=== PATIENT | female | born 1955 | race Caucasian/White ===

== ENCOUNTER → 2016-10-20 | Outpatient (CLI) | payer MEDICARE, MEDICAID | LOC: RAD 07:54 | PROVIDERS: ATTEND Physician Assistant | DX: R94.5 Abnormal results of liver function studies (principal); K82.8 Other specified diseases of gallbladder | CPT/HCPCS: 76705 ==

== ENCOUNTER 2016-11-29 19:09 | Emergency (ER) | payer MEDICARE, MEDICAID ==
[2016-11-29] MEDS ORDERED: ONDANSETRON HCL INJ/PF 4 MG/2 ML SDV IV ONE (20:15)
[2016-11-29] MEDS ORDERED: FENTANYL CITRATE INJ/PF 100 MCG/2 ML AMPUL IV PRN (20:15)
[2016-11-29] MEDS ORDERED: NORMAL SALINE 1000 ML 1,000 ML IV ONE (20:16)
--- NOTE | 2016-11-29 20:17 | ER Document Report ---
ED Medical Screen (RME) - General Chief Complaint: Nausea/Vomiting/Diarrhea Stated Complaint: NAUSEA AND ABDOMINAL PAIN Notes: Patient is a 61-year-old female status post cholecystectomy 10 days ago at [facility] who presents with diffuse abdominal pain, fever up to 103.5F, persistent diarrhea, and worsening myalgias. She has not been able to follow-up in [place]. Nothing improves or worsens or symptoms. She notes that she has diffuse lower abdominal pain at this time. I have greeted and performed a rapid initial assessment of this patient. A comprehensive ED assessment and evaluation of the patient, analysis of test results and completion of medical decision making process will be conducted by an additional ED providers. TRAVEL OUTSIDE OF THE [place] IN LAST 30 DAYS: No - Related Data Allergies/Adverse Reactions: codeine [Codeine] Allergy (Mild, Verified 11/29/16 19:21) Vomiting hydrocodone [From [place]] Allergy (Mild, Verified 11/29/16 19:21) lithium [[place]] Allergy (Mild, Verified 11/29/16 19:21) Hives nifedipine [From Procardia] Allergy (Mild, Verified 11/29/16 19:21) Hives oxycodone [From Percocet] Allergy (Mild, Verified 11/29/16 19:21) paroxetine HCl [From Paxil] Allergy (Mild, Verified 11/29/16 19:21) Hives Penicillins Allergy (Mild, Verified 11/29/16 19:21) Hives Sulfa (Sulfonamide Antibiotics) Allergy (Mild, Verified 11/29/16 19:21) Hives acetaminophen [From Tylenol-Codeine #3] Adverse Reaction (Verified 11/29/16 19: 21) Nausea/Vomiting paroxetine [From Paxil] Adverse Reaction (Verified 11/29/16 19:21) Involuntary movement(arm), Confusion pentazocine [From [place]] Adverse Reaction (Verified 11/29/16 19:21) Nausea/Vomiting Past Medical History - Past Medical History Cardiac Medical History: Reports: Hx Atrial Fibrillation Denies: Hx Congestive Heart Failure, Hx Coronary Artery Disease, Hx Heart Attack, Hx Hypercholesterolemia, Hx Hypertension, Hx Peripheral Vascular Disease , Hx Pulmonary Embolism, Hx Heart Murmur Pulmonary Medical History: Reports: Hx Pneumonia Denies: Hx Asthma, Hx Bronchitis, Hx COPD, Hx Respiratory Failure, Hx Sleep Apnea, Hx Tuberculosis Neurological Medical History: Reports: Hx Migraine. Denies: Hx Cerebrovascular Accident, Hx Seizures Endocrine Medical History: Reports: Hx Hypothyroidism. Denies: Hx Graves' Disease, Hx Hyperthyroidism Renal/ Medical History: Reports: Hx Ovarian Cysts - often, break upon standing. Denies: Hx End Stage Renal Disease, Hx Kidney Stones, Hx Peritoneal Dialysis, Hx Pelvic Inflammatory Disease Malignancy Medical History: Denies: Hx Breast Cancer, Hx Cervical Cancer, Hx Leukemia, Hx Lung Cancer, Hx Ovarian Cancer GI Medical History: Reports: Hx Irritable Bowel. Denies: Hx Crohn's Disease, Hx Gastroesophageal Reflux Disease, Hx Hiatal Hernia, Hx Liver Failure, Hx Ulcer Musculoskeltal Medical History: Reports Hx Arthritis, Denies Hx Fibromyalgia, Denies Hx Multiple Sclerosis, Denies Hx Muscular Dystrophy Psychiatric Medical History: Reports: Hx Bipolar Disorder, Hx Depression, Hx Post Traumatic Stress Disorder - after loss of father 1992 Denies: Hx Dementia - problem with short term memory, Hx Schizophrenia Traumatic Medical History: Denies: Hx Fractures Infectious Medical History: Denies: Hx HIV Past Surgical History: Reports: Hx Abdominal Surgery, Hx Gastric Bypass Surgery - 2001, Hx Hysterectomy, Hx Orthopedic Surgery - right knee surgery, Hx Tonsillectomy, Hx Tubal Ligation. Denies: Hx Appendectomy, Hx Bowel Surgery, Hx Section, Hx Cholecystectomy, Hx Colostomy, Hx Coronary Artery Bypass Graft, Hx Herniorrhaphy, Hx Mastectomy, Hx Pacemaker - Immunizations Hx Diphtheria, Pertussis, Tetanus Vaccination: No Physical Exam - Vital signs Vitals: Temp Pulse Resp BP Pulse Ox 98.5 F 85 16 144/66 H 96 11/29/16 19:17 11/29/16 19:17 11/29/16 19:17 11/29/16 19:17 11/29/16 19:17 Notes: PHYSICAL EXAMINATION: GENERAL: Well-appearing, well-nourished and in no acute distress. HEAD: Atraumatic, normocephalic. EYES: sclera anicteric, conjunctiva are normal. ENT: Moist mucous membranes. NECK: Normal range of motion LUNGS: Normal work of breathing HEART: 2+ radial pulses bilaterally EXTREMITIES: no pitting or edema. No cyanosis. NEUROLOGICAL: No focal neurological deficits. Moves all extremities spontaneously and on command. PSYCH: Normal mood, normal affect. SKIN: Warm, Dry, normal turgor, no rashes or lesions noted. Course - Vital Signs Vital signs: Temp Pulse Resp BP Pulse Ox 98.5 F 85 16 144/66 H 96 11/29/16 19:17 11/29/16 19:17 11/29/16 19:17 11/29/16 19:17 11/29/16 19:17
[2016-11-29 22:11] LABS: ABSOLUTE BASOPHILS # (AUTO) 0.1 10^3/uL (0.0-0.2); ABSOLUTE EOSINOPHILS # (AUTO) 0.1 10^3/uL (0.0-0.6); ABSOLUTE LYMPHOCYTES (AUTO) 1.6 10^3/uL (0.5-4.7); ABSOLUTE MONOCYTES (AUTO) 0.8 10^3/uL (0.1-1.4); ABSOLUTE NEUT (AUTO) 6.7 10^3/uL (1.7-8.2); BASOPHILS % (AUTO) 1.2 % (0-2); EOSINOPHILS % (AUTO) 0.6 % (0-6); HEMATOCRIT 30.7 % (36.0-47.0); HEMOGLOBIN 10.5 g/dL (12.0-15.5); HGB HCT DIFFERENCE 0.8; MEAN CORPUSCULAR HEMOGLOBIN 32.1 pg (27.0-33.4); MEAN CORPUSCULAR HGB CONC 34.1 g/dL (32.0-36.0); MEAN CORPUSCULAR VOLUME 94 fl (80-97); MONOCYTES % (AUTO) 9.1 % (3-13); RED BLOOD COUNT 3.26 10^6/uL (3.72-5.28); RED CELL DISTRIBUTION WIDTH 14.7 % (11.5-14.0); SEGMENTED NEUTROPHILS % (AUTO) 72.1 % (42-78); WHITE BLOOD COUNT 9.3 10^3/uL (4.0-10.5)
[2016-11-29 22:17] LABS: ALANINE AMINOTRANSFERASE 29 U/L (9-52); ALBUMIN 3.2 g/dL (3.5-5.0); ALKALINE PHOSPHATASE 141 U/L (38-126); ANION GAP 9 (5-19); ASPARTATE AMINO TRANSFERASE 26 U/L (14-36); BILIRUBIN,DIRECT 0.3 mg/dL (0.0-0.4); BILIRUBIN,TOTAL 0.4 mg/dL (0.2-1.3); BLOOD UREA NITROGEN 7 mg/dL (7-20); CALCIUM 8.5 mg/dL (8.4-10.2); CARBON DIOXIDE 28 mmol/L (22-30); CHLORIDE 112 mmol/L (98-107); CREATININE RESULT 1.22 mg/dL (0.52-1.25); GLUCOSE 91 mg/dL (75-110); POTASSIUM 3.1 mmol/L (3.6-5.0); SODIUM 149.4 mmol/L (137-145); TOTAL PROTEIN 6.8 g/dL (6.3-8.2)
--- NOTE | 2016-11-29 22:33 | ER Document Report ---
ED GI/ - General Chief Complaint: Nausea/Vomiting/Diarrhea Stated Complaint: NAUSEA AND ABDOMINAL PAIN Mode of Arrival: Ambulatory Information source: Patient Notes: This is a 61-year-old female who is postop day #9 status post laparoscopic cholecystectomy at [facility]. She states that she has been home from the hospital for one week, and for that week she has had daily and worsening diarrhea. She also reports abdominal discomfort which is worse in the right upper quadrant. She states that she has had difficulty following up with her surgeon at [facility] secondary to lack of transportation. She did follow up with her primary care physician Dr. Mcghee yesterday, and she was told to follow-up with her surgeon. She states that this morning at about 2 AM, she recorded a oral temperature at home of 103. She states that she has not taken any Tylenol or ibuprofen for fever has resolved spontaneously. Her last oral intake was one half of a hamburger melissa earlier today. She has had no vomiting. She states she has had up to 7 episodes of diarrhea today. TRAVEL OUTSIDE OF THE [place] IN LAST 30 DAYS: No - Related Data Allergies/Adverse Reactions: codeine [Codeine] Allergy (Mild, Verified 11/29/16 19:21) Vomiting hydrocodone [From [place]] Allergy (Mild, Verified 11/29/16 19:21) lithium [[place]] Allergy (Mild, Verified 11/29/16 19:21) Hives nifedipine [From Procardia] Allergy (Mild, Verified 11/29/16 19:21) Hives oxycodone [From Percocet] Allergy (Mild, Verified 11/29/16 19:21) paroxetine HCl [From Paxil] Allergy (Mild, Verified 11/29/16 19:21) Hives Penicillins Allergy (Mild, Verified 11/29/16 19:21) Hives Sulfa (Sulfonamide Antibiotics) Allergy (Mild, Verified 11/29/16 19:21) Hives acetaminophen [From Tylenol-Codeine #3] Adverse Reaction (Verified 11/29/16 19: 21) Nausea/Vomiting paroxetine [From Paxil] Adverse Reaction (Verified 11/29/16 19:21) Involuntary movement(arm), Confusion pentazocine [From [place]] Adverse Reaction (Verified 11/29/16 19:21) Nausea/Vomiting paper tape Allergy (Uncoded 11/29/16 21:00) Past Medical History - General Information source: Patient - Social History Smoking Status: Current Every Day Smoker Chew tobacco use (# tins/day): No Frequency of alcohol use: None Drug Abuse: None Family History: None - Past Medical History Cardiac Medical History: Reports: Hx Atrial Fibrillation Denies: Hx Congestive Heart Failure, Hx Coronary Artery Disease, Hx Heart Attack, Hx Hypercholesterolemia, Hx Hypertension, Hx Peripheral Vascular Disease , Hx Pulmonary Embolism, Hx Heart Murmur Pulmonary Medical History: Reports: Hx Pneumonia Denies: Hx Asthma, Hx Bronchitis, Hx COPD, Hx Respiratory Failure, Hx Sleep Apnea, Hx Tuberculosis Neurological Medical History: Reports: Hx Migraine. Denies: Hx Cerebrovascular Accident, Hx Seizures Endocrine Medical History: Reports: Hx Hypothyroidism. Denies: Hx Graves' Disease, Hx Hyperthyroidism Renal/ Medical History: Reports: Hx Ovarian Cysts - often, break upon standing. Denies: Hx End Stage Renal Disease, Hx Kidney Stones, Hx Peritoneal Dialysis, Hx Pelvic Inflammatory Disease Malignancy Medical History: Denies: Hx Breast Cancer, Hx Cervical Cancer, Hx Leukemia, Hx Lung Cancer, Hx Ovarian Cancer GI Medical History: Reports: Hx Irritable Bowel. Denies: Hx Crohn's Disease, Hx Gastroesophageal Reflux Disease, Hx Hiatal Hernia, Hx Liver Failure, Hx Ulcer Musculoskeltal Medical History: Reports Hx Arthritis, Denies Hx Fibromyalgia, Denies Hx Multiple Sclerosis, Denies Hx Muscular Dystrophy Psychiatric Medical History: Reports: Hx Bipolar Disorder, Hx Depression, Hx Post Traumatic Stress Disorder - after loss of father 1992 Denies: Hx Dementia - problem with short term memory, Hx Schizophrenia Traumatic Medical History: Denies: Hx Fractures Infectious Medical History: Denies: Hx HIV Past Surgical History: Reports: Hx Abdominal Surgery, Hx Cholecystectomy, Hx Gastric Bypass Surgery - 2001, Hx Hysterectomy, Hx Orthopedic Surgery - right knee surgery left knee right shoulder left shoulder right hip right, Hx Tonsillectomy - adenoids, Hx Tubal Ligation. Denies: Hx Appendectomy, Hx Bowel Surgery, Hx Section, Hx Colostomy, Hx Coronary Artery Bypass Graft, Hx Herniorrhaphy, Hx Mastectomy, Hx Pacemaker - Immunizations Hx Diphtheria, Pertussis, Tetanus Vaccination: No Review of Systems - Review of Systems Constitutional: Fever. denies: Chills EENT: No symptoms reported Cardiovascular: No symptoms reported. denies: Chest pain, Dizziness Respiratory: No symptoms reported. denies: Cough, Hurts to breathe, Short of breath Gastrointestinal: See HPI Genitourinary: No symptoms reported. denies: Burning, Dysuria Musculoskeletal: No symptoms reported Skin: No symptoms reported Neurological/Psychological: No symptoms reported Physical Exam - Vital signs Vitals: Temp Pulse Resp BP Pulse Ox 98.5 F 85 16 144/66 H 96 11/29/16 19:17 11/29/16 19:17 11/29/16 19:17 11/29/16 19:17 11/29/16 19:17 - Notes Notes: PHYSICAL EXAMINATION: GENERAL: Well-appearing, well-nourished and in no acute distress although anxious affect HEAD: Atraumatic, normocephalic. EYES: Pupils equal round and reactive to light, extraocular movements intact, sclera anicteric, conjunctiva are normal. ENT: nares patent, oropharynx clear without exudates. Moist mucous membranes. NECK: Normal range of motion, supple without lymphadenopathy LUNGS: Breath sounds clear to auscultation bilaterally and equal. No wheezes rales or rhonchi. HEART: Regular rate and rhythm without murmurs ABDOMEN: Soft, nondistended, laparascopic incisions healing well, normoactive bowel sounds. Mild TTP RUQ and suprapubic, no guarding/rebound/rigidity EXTREMITIES: Normal range of motion, no pitting or edema. NEUROLOGICAL: Cranial nerves grossly intact. Motor strength +5/5 bilateral upper and lower extremities PSYCH: Normal mood, anxious and worried affect SKIN: Warm, Dry, normal turgor, no rashes or lesions noted. Course - Re-evaluation Re-evalutation: 11/29/16 22:38 Records from [facility] have been requested. 11/30/16 00:02 Records from [facility] have been reviewed. The patient has remained hemodynamically stable and comfortable here in the emergency Department with no episodes of diarrhea. Her CT of her abdomen and pelvis demonstrated no acute process and no evidence of postsurgical infection or abscess. Her laboratory evaluation was significant for mild hypokalemia was otherwise reassuring. She does appear to have a urinary tract infection. She will receive one dose of IV antibiotics here in the emergency department and be discharged with outpatient antibiotics. She is instructed to call her surgeon and [facility] on Thursday to schedule her postop follow-up appointment. Strict return precautions were discussed. She is very happy and comfortable with this plan. She does ask for a prescription for pain medication for chronic migraines and back pain before she leaves and I did explain policy on not treating chronic pain in the emergency department. She voices understanding of this. - Vital Signs Vital signs: Temp Pulse Resp BP Pulse Ox 98.5 F 84 20 142/67 H 100 11/29/16 19:17 11/29/16 23:00 11/29/16 23:00 11/29/16 23:00 11/29/16 23:00 - Laboratory Result Diagrams: 11/29/16 21:45 11/29/16 21:45 Laboratory results interpreted by me: 11/29/16 11/29/16 11/29/16 21:45 21:45 22:53 RBC 3.26 L Hgb 10.5 L Hct 30.7 L RDW 14.7 H Sodium 149.4 H Potassium 3.1 L Chloride 112 H Est GFR ( Amer) 54 L Est GFR (Non-Af Amer) 45 L Alkaline Phosphatase 141 H Albumin 3.2 L Urine Blood SMALL H Ur Leukocyte Esterase MODERATE H - Diagnostic Test Radiology reviewed: Reports reviewed - CT abd/pelvis: no acute abnormality Discharge - Discharge Clinical Impression: Post-op pain, Hypokalemia UTI (urinary tract infection) Qualifiers: Urinary tract infection type: site unspecified Hematuria presence: without hematuria Qualified Code(s): N39.0 - Urinary tract infection, site not specified Condition: Stable Disposition: HOME, SELF-CARE Additional Instructions: URINARY TRACT INFECTION: Your evaluation indicates that you have a urinary tract infection. This is due to germs growing in the bladder. This is a common problem. This infection usually responds quickly to antibiotics. Your antibiotic should be taken exactly as prescribed. Drink plenty of fluids -- three to four quarts a day. Occasionally, a bladder anesthetic will be prescribed to help stop the feeling of urgency until the antibiotic has a chance to clear the infection. This may cause your urine to be dark orange. Certain urine infections require a culture. If the doctor obtained a culture, the results will be back in two days. You should call to see if a change in treatment is needed. A repeat urinalysis after you finish treatment is often recommended. The physician will let you know if further testing is required. Call the doctor if you develop fever, chills, flank pain, inability to urinate, or blood in the urine. ANTIBIOTIC THERAPY: You have been given an antibiotic prescription. It's important that you take all the medication, unless instructed otherwise by your physician. Failure to complete the entire course can result in relapse of your condition. Common side effects of antibiotics include nausea, intestinal cramping, or diarrhea. Women may develop vaginal yeast infections, and babies can get yeast (thrush) in the mouth following the use of antibiotics. Contact your physician if you develop significant side effects from this medication. Allergy to this antibiotic can result in hives, wheezing, faintness, or itching. If symptoms of allergy occur, stop the medication and call the doctor. NITROFURANTOIN (MACRODANTIN, MACROBID): You have received a prescription for nitrofurantoin (Macrodantin). This antibiotic is used for urinary tract infections. Women who are or nursing should notify the physician before taking this medicine. If you have ever had a problem caused by this medication in the past, be sure the physician is aware of it. Common side effects of this medicine include nausea, vomiting, or decreased appetite. Notify your physician if these side effects become severe. Immediately stop this medicine and call the physician if you develop cough , shortness of breath, chest pain, weakness, jaundice (yellow color of the skin and whites of the eyes), or a skin rash. HYPOKALEMIA: You have an abnormally decreased level of serum potassium. Hypokalemia may cause weakness, fatigue, or heart rhythm abnormalities. Sometimes there are no symptoms at all. Usually, low serum potassium is due to taking diuretics ( water pills). It can also be due to excessive vomiting or diarrhea. If no obvious cause is evident, further evaluation will be necessary. Treatment is usually oral potassium supplements. Take these exactly as prescribed. You may also want to select foods which are naturally high in potassium -- fruits (such as bananas, cantaloupe, grapes, oranges, prunes, tomatoes), fresh vegetables (potatoes, spinach, beans, peas), orange or tomato juice, tomato pasta sauce, milk, fish (halibut, tuna, salmon, flaco) A follow-up blood test is usually performed to assure that the potassium is returning to normal. Call the physician if you suffer severe weakness, muscle twitching or cramping, palpitations (pounding or irregular heartbeat), or any other new or alarming symptoms. POTASSIUM: A potassium-containing medication has been prescribed. This is usually used to treat potassium depletion caused by diuretics or by vomiting and diarrhea. This type of medicine is available in many forms, including elixirs, powders, fruity drinks, and pills. If one type is not working out for you, another can be substituted. Potassium can cause stomach upset. This can be prevented by taking it with meals. Do not take more than your doctor recommends. Notify your doctor if you develop repeated vomiting, black or bloody stool , severe weakness or numbness. FOODS HIGH IN POTASSIUM: baked potato with skin 1080 mg tomato pasta sauce, 1 cup 940 sweet potato with skin 690 orange juice, 1 cup 480 sammarinese chard 480 tuna, 3 oz 480 cantaloupe, 1 cup 430 banana 420 spinach 420 yogurt, plain, nofat, 6 oz 400 milk, 1 cup 370 watermelon, 2 cups 340 tomato, 1/2 cup 210 Other foods high in potassium are most other fruits and vegetables and fish. FOLLOW-UP CARE: If you have been referred to a physician for follow-up care, call the physician s office for an appointment as you were instructed or within the next two days. If you experience worsening or a significant change in your symptoms, notify the physician immediately or return to the Emergency Department at any time for re-evaluation. As discussed, call your surgeon in [place] on Thursday to schedule post op follow up appointment. Rest, drink plenty of fluids. Return to the ER for fever >101 or any worsening symptoms or concerns. Prescriptions: Nitrofurantoin/Nitrofuran Mac [Macrobid 100 mg Capsule] 1 tab PO BID #20 capsule Potassium Chloride 20 meq PO DAILY #3 tablet.er
[2016-11-29] MEDS ORDERED: POTASSI CL 20 MEQ/50 ML RIDER 50 ML IV ONE (22:40)
[2016-11-29] MEDS ORDERED: POTASSIUM CHLORIDE 20 MEQ/15 ML UDCUP PO ONE (22:40)
[2016-11-29 23:15] LABS: APPEARANCE,URINE CLEAR; BILIRUBIN,URINE NEGATIVE (NEGATIVE); GLUCOSE, URINE NEGATIVE (NEGATIVE); KETONES,URINE NEGATIVE (NEGATIVE); LEUKOCYTE ESTERASE,URINE MODERATE (NEGATIVE); NITRITE,URINE NEGATIVE (NEGATIVE); PROTEIN,URINE NEGATIVE (NEGATIVE); URINE SPECIFIC GRAVITY 1.002; UROBILINOGEN,URINE NEGATIVE mg/dL (<2.0)
[2016-11-29] MEDS ORDERED: CEFTRIAXONE 1 GM/D5W RTU 50 ML IV ONE (23:28)
[2016-11-30 00:58] VITALS: BP 131/65
== END 2016-11-30 00:58 | disposition home or self-care (01) ==
LOC: ER 19:09
DX: G89.18 Other acute postprocedural pain (principal); R10.11 Right upper quadrant pain; N39.0 Urinary tract infection, site not specified; R19.7 Diarrhea, unspecified; E87.6 Hypokalemia; F17.200 Nicotine dependence, unspecified, uncomplicated; F41.9 Anxiety disorder, unspecified; Z90.49 Acquired absence of other specified parts of digestive tract; Z88.5 Allergy status to narcotic agent; Z88.8 Allergy status to other drugs, medicaments and biological substances; Z88.0 Allergy status to penicillin; Z88.2 Allergy status to sulfonamides; Z91.048 Other nonmedicinal substance allergy status; Z87.19 Personal history of other diseases of the digestive system; Z98.84 Bariatric surgery status; Z90.710 Acquired absence of both cervix and uterus
CPT/HCPCS: 99284; 96361; 96375; 96365; 36415; 87040; 89055; 85025; 82272; 80053; 81001; 87493 ×2; 74177; J3010; A9270; J2405; J7030; J0696

== ENCOUNTER → 2017-07-21 | Outpatient (CLI) | payer MEDICARE, MEDICAID ==
--- NOTE | 2017-07-21 15:56 | RADIOLOGY REPORT (SQ) ---
EXAM DESCRIPTION: CT HEAD WITHOUT COMPLETED DATE/TIME: 07/21/2017 3:46 pm REASON FOR STUDY: UNSPECIFIED COMA,FALL R40.20 UNSPECIFIED COMA W19.XXXA UNSPECIFIED FALL, INITIAL ENCOUNTER COMPARISON: 01/01/2016 TECHNIQUE: Axial images acquired through the brain without intravenous contrast. Images reviewed wi th bone, brain and subdural windows. Images stored on PACS. All CT scanners at this facility use dose modulation, iterative reconstruction, and/or weight based d osing when appropriate to reduce radiation dose to as low as reasonably achievable (ALARA). [facility]: Dose Right [facility]: CareDose [facility]: Dose Right [facility]: Teradose 4D [facility]: Novogen RADIATION DOSE: CT Rad equipment meets quality standard of care and radiation dose reduction techniq ues were employed. CTDIvol: 49.0 mGy. DLP: 783 mGy-cm. mGy. LIMITATIONS: None. FINDINGS: VENTRICLES: Normal size and contour. CEREBRUM: No masses. No hemorrhage. No midline shift. No evidence for acute infarction. Normal gra y/white matter differentiation. No areas of low density in the white matter. CEREBELLUM: No masses. No hemorrhage. No alteration of density. No evidence for acute infarction. EXTRAAXIAL SPACES: No fluid collections. No masses. ORBITS AND GLOBE: No intra- or extraconal masses. Normal contour of globe without masses. CALVARIUM: No fracture. PARANASAL SINUSES: No fluid or mucosal thickening. SOFT TISSUES: No mass or hematoma. OTHER: No other significant finding. IMPRESSION: NO ACUTE INTRACRANIAL IMAGING FINDINGS. NO SIGNIFICANT CHANGE FROM PRIOR STUDY. EVIDENCE OF ACUTE STROKE: NO. COMMENT: Quality ID # 436: Final reports with documentation of one or more dose reduction techniques (e.g., Automated exposure control, adjustment of the mA and/or kV according to patient size, use of iterative reconstruction technique) TECHNICAL DOCUMENTATION: JOB ID: [id number] [employer]- All Rights Reserved
== END ==
LOC: RAD 15:32
PROVIDERS: ATTEND Family Medicine
DX: R40.20 Unspecified coma (principal); W19.XXXA Unspecified fall, initial encounter
CPT/HCPCS: 70450

== ENCOUNTER → 2017-12-01 | Day surgery (SDC) | payer MEDICARE, MEDICAID ==
[~2017-12-01] MED LIST: LIDOCAINE 1% INJ-PF (10 MG/ML) 30 ML SDV ONE
--- NOTE | 2017-12-01 14:10 | RADIOLOGY REPORT (SQ) ---
EXAM DESCRIPTION: ARTHRO SHOULDER INJECTION; FLUORO/NEEDLE PLACEMENT COMPLETED DATE/TIME: 12/01/2017 1:24 pm REASON FOR STUDY: M25.511 PAIN IN RIGHT SHOULDER M25.511 PAIN IN RIGHT SHOULDER COMPARISON: None. FLUOROSCOPY TIME: 3 seconds 2 images saved to PACS. LIMITATIONS: None. PROCEDURE: Procedure, risks, benefits and alternatives explained to patient who then gave written co nsent. The right shoulder was marked and a time out was called for correct procedure verification. P osterior entry site marked using fluoroscopic guidance. Shoulder prepped and draped using sterile te chnique. Local anesthesia achieved using 1% lidocaine injection. Hypodermic needle introduced into the joint space under direct fluoroscopic visualization. Non-ionic contrast instilled to confirm intr a-articular position. Dilute gadolinium solution then injected. Needle removed and entry site covere d with sterile bandage. No immediate complications noted. TECHNIQUE: Digital images acquired during fluoroscopy and stored on PACS. Patient immediately take n to the MR suite for additional imaging. INJECTION LOCATION: Posterior right shoulder. CONTRAST TYPE AND AMOUNT: 1 cc Isovue 10 cc Prohance/Saline mixture. IMPRESSION: SUCCESSFUL NEEDLE PLACEMENT AND INJECTION FOR RIGHT SHOULDER MR ARTHROGRAM USING POSTERI OR APPROACH. COMMENT: Quality ID 145: Final reports for procedures using fluoroscopy that document radiation exp osure indices, or exposure time and number of fluorographic images (if radiation exposure indices are not available) TECHNICAL DOCUMENTATION: JOB ID: [id number] [employer]- All Rights Reserved Reading location - IP/workstation name: [email or web address]
--- NOTE | 2017-12-01 14:10 | RADIOLOGY REPORT (SQ) ---
EXAM DESCRIPTION: ARTHRO SHOULDER INJECTION; FLUORO/NEEDLE PLACEMENT COMPLETED DATE/TIME: 12/01/2017 1:24 pm REASON FOR STUDY: M25.511 PAIN IN RIGHT SHOULDER M25.511 PAIN IN RIGHT SHOULDER COMPARISON: None. FLUOROSCOPY TIME: 3 seconds 2 images saved to PACS. LIMITATIONS: None. PROCEDURE: Procedure, risks, benefits and alternatives explained to patient who then gave written co nsent. The right shoulder was marked and a time out was called for correct procedure verification. P osterior entry site marked using fluoroscopic guidance. Shoulder prepped and draped using sterile te chnique. Local anesthesia achieved using 1% lidocaine injection. Hypodermic needle introduced into the joint space under direct fluoroscopic visualization. Non-ionic contrast instilled to confirm intr a-articular position. Dilute gadolinium solution then injected. Needle removed and entry site covere d with sterile bandage. No immediate complications noted. TECHNIQUE: Digital images acquired during fluoroscopy and stored on PACS. Patient immediately take n to the MR suite for additional imaging. INJECTION LOCATION: Posterior right shoulder. CONTRAST TYPE AND AMOUNT: 1 cc Isovue 10 cc Prohance/Saline mixture. IMPRESSION: SUCCESSFUL NEEDLE PLACEMENT AND INJECTION FOR RIGHT SHOULDER MR ARTHROGRAM USING POSTERI OR APPROACH. COMMENT: Quality ID 145: Final reports for procedures using fluoroscopy that document radiation exp osure indices, or exposure time and number of fluorographic images (if radiation exposure indices are not available) TECHNICAL DOCUMENTATION: JOB ID: [id number] [employer]- All Rights Reserved Reading location - IP/workstation name: [facility]
--- NOTE | 2017-12-01 14:57 | RADIOLOGY REPORT (SQ) ---
EXAM DESCRIPTION: MRI RT UPPER JOINT WITH COMPLETED DATE/TIME: 12/01/2017 2:06 pm REASON FOR STUDY: M25.511 PAIN IN RIGHT SHOULDER M25.511 PAIN IN RIGHT SHOULDER COMPARISON: 06/04/2016 TECHNIQUE: Right shoulder images acquired and stored on PACS. Oblique coronal, oblique sagittal, and axial imaging to include fat sensitive sequences as T1, water sensitive sequences as FST2/STIR, and contrast sensitive sequences as FST1. LIMITATIONS: Susceptibility artifact. FINDINGS: JOINT DISTENTION: Adequate distention for interpretation. Contrast in the subacromial bur sa. BONE MARROW AND CORTEX: Suture anchors in the humeral head. AC JOINT: Widening of the joint space which is unchanged. GLENOHUMERAL JOINT: Intact. ROTATOR CUFF: Atrophy of the supraspinatus and infraspinatus. Full-thickness tears with retraction. subscapularis and teres minor intact. LABRUM AND BICEPS LABRAL COMPLEX: Biceps anchor is attenuated but intact. The distal biceps is absen t from the bicipital groove. INFERIOR LABRAL COMPLEX: Intact. ADJACENT SOFT TISSUES: No masses or nodes. OTHER: No other significant finding. IMPRESSION: 1. Full-thickness tears of the supraspinatus and infraspinatus with retraction and muscle atrophy. 2. Attenuated biceps anchor with absent distal biceps, either torn or status post tenodesis. TECHNICAL DOCUMENTATION: JOB ID: [id number] [employer]- All Rights Reserved Reading location - IP/workstation name: [email or web address]
== END ==
LOC: EDBD → RAD 12:08 → EDSTATUS 13:00 → MERGE 13:00
PROVIDERS: ATTEND Orthopaedic Surgery
DX: M25.511 Pain in right shoulder (principal)
CPT/HCPCS: 73222; 77002; 23350; A9576; J3490

== ENCOUNTER → 2018-03-12 | Outpatient (CLI) | payer MEDICARE, MEDICAID ==
--- NOTE | 2018-03-12 14:21 | RADIOLOGY REPORT (SQ) ---
EXAM DESCRIPTION: KUB COMPLETED DATE/TIME: 03/12/2018 1:14 pm REASON FOR STUDY: CONSTIPATION, UNSPECIFIED K59.00 CONSTIPATION, UNSPECIFIED COMPARISON: CT abdomen pelvis 11/29/2016 Right upper quadrant ultrasound 10/20/2016 NUMBER OF VIEWS: One view. TECHNIQUE: Supine radiographic image of the abdomen acquired. LIMITATIONS: None. FINDINGS: BOWEL GAS PATTERN: Normal bowel gas pattern. No dilated loops. Moderate stool in the sple juliet flexure of colon and transverse colon CALCIFICATIONS: No suspicious calcifications. SOFT TISSUES: No gross mass or suggestion of organomegaly. HARDWARE: Clips left upper quadrant post gastric bypass. Right upper quadrant clips post cholecystec fan. Lower lumbar spine fusion hardware. Right hip replacement. Bladder tacks are present over th e symphysis pubis BONES: No acute fracture. No worrisome bone lesions. OTHER: No other significant finding. IMPRESSION: Moderate stool in the splenic flexure and transverse colon TECHNICAL DOCUMENTATION: JOB ID: [id number] [employer]- All Rights Reserved Reading location - IP/workstation name: [facility]
== END ==
LOC: OD 12:37
PROVIDERS: ATTEND Physician Assistant
DX: K59.00 Constipation, unspecified (principal)
CPT/HCPCS: 74018

== ENCOUNTER → 2018-04-19 | Outpatient (CLI) | payer MEDICARE, MEDICAID ==
[2018-04-19 14:29] LABS: ABSOLUTE BASOPHILS # (AUTO) 0.1 10^3/uL (0.0-0.2); ABSOLUTE EOSINOPHILS # (AUTO) 0.2 10^3/uL (0.0-0.6); ABSOLUTE MONOCYTES (AUTO) 0.5 10^3/uL (0.1-1.4); ABSOLUTE NEUT (AUTO) 4.5 10^3/uL (1.7-8.2); BASOPHILS % (AUTO) 0.8 % (0-2); EOSINOPHILS % (AUTO) 3.1 % (0-6); HEMATOCRIT 40.5 % (36.0-47.0); HEMOGLOBIN 13.8 g/dL (12.0-15.5); LYMPHOCYTES % (AUTO) 26.8 % (13-45); MEAN CORPUSCULAR HEMOGLOBIN 31.8 pg (27.0-33.4); MEAN CORPUSCULAR VOLUME 93 fl (80-97); MONOCYTES % (AUTO) 7.3 % (3-13); PLATELET COUNT 216 10^3/uL (150-450); RED BLOOD COUNT 4.34 10^6/uL (3.72-5.28); RED CELL DISTRIBUTION WIDTH 13.5 % (11.5-14.0); TOTAL CELLS COUNTED % (AUTO) 100 %; WHITE BLOOD COUNT 7.3 10^3/uL (4.0-10.5)
--- NOTE | 2018-04-19 14:38 | RADIOLOGY REPORT (SQ) ---
EXAM DESCRIPTION: CHEST PA/LATERAL COMPLETED DATE/TIME: 04/19/2018 1:41 pm REASON FOR STUDY: PRE-OP COMPARISON: Chest film 06/23/2016 EXAM PARAMETERS: NUMBER OF VIEWS: two views TECHNIQUE: Digital Frontal and Lateral radiographic views of the chest acquired. RADIATION DOSE: NA LIMITATIONS: none FINDINGS: LUNGS AND PLEURA: Stable bandlike scarring or atelectasis left lung base as compared to 20 16. No acute infiltrates. No pleural effusion or pneumothorax. MEDIASTINUM AND HILAR STRUCTURES: No masses or contour abnormalities. HEART AND VASCULAR STRUCTURES: Heart normal size. No evidence for failure. BONES: Osteopenic. Postsurgical changes right proximal humerus HARDWARE: None in the chest. OTHER: No other significant finding. IMPRESSION: Stable atelectasis or scarring left lung base. No acute infiltrates. TECHNICAL DOCUMENTATION: JOB ID: [id number] [employer]- All Rights Reserved Reading location - IP/workstation name: [email or web address]
[2018-04-19 14:50] LABS: APPEARANCE,URINE CLOUDY; BILIRUBIN,URINE NEGATIVE (NEGATIVE); COLOR,URINE YELLOW; GLUCOSE, URINE NEGATIVE (NEGATIVE); KETONES,URINE NEGATIVE (NEGATIVE); LEUKOCYTE ESTERASE,URINE SMALL (NEGATIVE); NITRITE,URINE NEGATIVE (NEGATIVE); PROTEIN,URINE NEGATIVE (NEGATIVE); URINE SPECIFIC GRAVITY 1.017
[2018-04-19 14:50] LABS: ANION GAP 7 (5-19); BLOOD UREA NITROGEN 18 mg/dL (7-20); CALCIUM 9.2 mg/dL (8.4-10.2); CARBON DIOXIDE 26 mmol/L (22-30); CHLORIDE 105 mmol/L (98-107); GLUCOSE 89 mg/dL (75-110); POTASSIUM 4.9 mmol/L (3.6-5.0); SODIUM 138.3 mmol/L (137-145)
--- NOTE | 2018-04-19 21:57 | EKG REPORT ---
SEVERITY:- OTHERWISE NORMAL ECG - SINUS RHYTHM BORDERLINE LEFT AXIS DEVIATION : Confirmed by: Essence Cancino MD 19-Apr-2018 21:56:39
== END ==
LOC: OD 13:07
PROVIDERS: ATTEND Family Medicine
DX: Z01.810 Encounter for preprocedural cardiovascular examination (principal); Z01.811 Encounter for preprocedural respiratory examination; Z01.812 Encounter for preprocedural laboratory examination; J98.11 Atelectasis
CPT/HCPCS: 36415; 71046; 80048; 81001; 85025; 93005; 93010

== ENCOUNTER 2018-04-22 08:28 | Day surgery (SDC) | payer MEDICARE, MEDICAID ==
[~2018-04-22 08:28] MED LIST changes: +CLINDAMYCIN 600 MG/D5W RTU 600 MG/50 ML RTUPB IV ONE; +CLINDAMYCIN 600 MG/D5W RTU 600 MG/50 ML RTUPB IV PRN; -LIDOCAINE 1% INJ-PF (10 MG/ML) 30 ML SDV ONE
--- NOTE | 2018-04-22 09:03 | RADIOLOGY REPORT (SQ) ---
EXAM DESCRIPTION: CHEST SINGLE VIEW COMPLETED DATE/TIME: 04/22/2018 8:52 am REASON FOR STUDY: PREOP COMPARISON: 04/19/2018 EXAM PARAMETERS: NUMBER OF VIEWS: One view. TECHNIQUE: Single frontal radiographic view of the chest acquired. RADIATION DOSE: NA LIMITATIONS: None. FINDINGS: LUNGS AND PLEURA: No opacities, masses or pneumothorax. No pleural effusion. Linear densi ty is again identified at the left lung base which could represent linear atelectasis or scarring. MEDIASTINUM AND HILAR STRUCTURES: No masses. Contour normal. HEART AND VASCULAR STRUCTURES: Heart normal in size. Normal vasculature. BONES: No acute findings. HARDWARE: None in the chest. OTHER: No other significant finding. IMPRESSION: Linear atelectasis or scarring in the left lung base. Remaining lung chappell are clear. Other findings as noted above TECHNICAL DOCUMENTATION: JOB ID: [id number] [employer]- All Rights Reserved Reading location - IP/workstation name: [email or web address]
[2018-04-22] MEDS ORDERED: BUPIVACAINE HCL 0.5 % INJ/PF 30 ML SDV ONE (09:40)
[2018-04-22] MEDS ORDERED: SUCCINYLCHOLINE CHLORIDE INJ 200 MG/10 ML VIAL ONE (09:40)
[2018-04-22] MEDS ORDERED: KETOROLAC TROMETHAMINE 60 MG/2 ML SDV ONE (09:40)
[2018-04-22] MEDS ORDERED: DEXAMETHASONE SOD PHOSPHATE INJ 4 MG/1 ML VIAL ONE (09:40)
[2018-04-22] MEDS ORDERED: PHENYLEPHRINE HCL INJ/PF 10 MG/1 ML SDV ONE (09:40)
[2018-04-22] MEDS ORDERED: ONDANSETRON HCL INJ/PF 4 MG/2 ML SDV ONE (09:40)
[2018-04-22] MEDS ORDERED: EPINEPHRINE INJ/PF 1 MG/1 ML AMPULE ONE (09:41)
[2018-04-22] MEDS ORDERED: MIDAZOLAM 2 MG/2 ML INJ ONE (11:12)
[2018-04-22] MEDS ORDERED: HYDROMORPHONE HCL INJ/PF 2 MG/ML AMPULE ONE (11:13)
[2018-04-22] MEDS ORDERED: PROPOFOL INJ 200 MG/20 ML VIAL IV ONE (11:14)
[2018-04-22] MEDS ORDERED: PROMETHAZINE HCL INJ 25 MG/1 ML VIAL IV PRN ×2 (13:09)
[2018-04-22] MEDS ORDERED: FENTANYL CITRATE INJ/PF 100 MCG/2 ML AMPUL IV PRN ×3 (13:09)
[2018-04-22] MEDS ORDERED: DIPHENHYDRAMINE HCL 50 MG/ML VIAL IV PRN (13:09)
[2018-04-22] MEDS: FENTANYL CITRATE INJ/PF 100 MCG/2 ML AMPUL ONE ×2 (15:35→15:45)
--- NOTE | 2018-04-22 15:41 | Discharge Summary ---
Discharge Summary (SDC) - Discharge Final Diagnosis: Right shoulder arthroscopic superior capsular reconstruction Date of Surgery: 04/22/18 Discharge Date: 04/22/18 Condition: Good Treatment or Instructions: Patient is instructed to follow up in 10-14 days. Patient instructed to remove dressing in 4 days then can shower and apply Band- Aids as needed. Patient to wear sling for comfort but okay to remove for shower and pendulum exercises. Pendulum exercises are instructed to be done 3 times a day ideally with breakfast, lunch, dinners and showers. Patient instructed to call if there is any signs of redness or drainage fevers or chills. Prescriptions: Oxycodone HCl 5 - 10 mg PO Q4 PRN #40 tablet PRN Reason: For Pain Referrals: CHERELLE PATEL MD [Primary Care Provider] - Discharge Diet: As Tolerated Respiratory Treatments at Home: Deep Breathing/Coughing Discharge Activity: No Driving, No Lifting Over 10 Pounds, No Lifting/Push/ Pulling, Slowly Increase Activity Home Care Assistance: None Needed Report the Following to Your Physician Immediately: Shortness of Breath, Vomiting, Increase in Pain, Fever over 101 Degrees, Unusual Bleeding, Redness, Swelling, Warmth, Increased Soreness, Drainage-[place], Drainage-Green, Drainage- Foul Smelling
[2018-04-22] MEDS ORDERED: OXYCODONE HCL IR 5 MG TABLET PO PRN (15:57)
[2018-04-22] MEDS ORDERED: OXYCODONE HCL IR 5 MG TABLET ONE (16:21)
[2018-04-22 17:34] VITALS: BP 128/66
--- NOTE | 2018-04-22 18:18 | Operative Report ---
Operative Report DATE OF SURGERY: 04/22/18 PREOPERATIVE DIAGNOSIS: Rotator cuff deficient right shoulder. Mild osteoarthritis POSTOPERATIVE DIAGNOSIS: Same OPERATION: Right shoulder arthroscopic superior capsular reconstruction using dermal allograft SURGEON: ARMANDO BROWN ANESTHESIA: GA TISSUE REMOVED OR ALTERED: none COMPLICATIONS: None ESTIMATED BLOOD LOSS: Less than 20 mL INTRAOPERATIVE FINDINGS: As above PROCEDURE: Patient received preoperative antibiotics in the holding area. Patient then was brought to the operating room where the right shoulder was prepped and draped in a normal sterile surgical fashion. Timeout was done identifying the right shoulder as the correct site. 11 blade was used to establish the previous posterior portal and the trocar was introduced and glenohumeral joint was distended with sterile saline solution. Anterior portal was established 11 blade and the same was done to establish a lateral portal more adjacent to the previous incision. Through this portal was able to remove and resect the old sutures from the previous rotator cuff repair. As noted the patient had to be rupture of the rotator cuff with retraction of the supraspinatus and some fibers of this infraspinatus still attached. Once debridement of the greater tuberosity was done and resection of the previous sutures I then redirected the camera to the subacromial space. Here continued to debride and expose the rim of the glenoid posterior to the rim of labrum. Through 2 percutaneous incisions I was able then to place my drill holes for my push locks and placed the orange straw to caroline my drill holes for eventual placement of my push locks. I then used a another breathing sensation to place my 2 by composite swivel locks for fixation posteriorly on the lateral row and anteriorly in the lateral row for my graft. On the back table then I proceeded to prepare the graft. I used a measuring device to measure all 4 corners and then cut my graft to the measurements measured. The remaining excess graft was then placed separately and then punch was used to make holes in the lateral row. I then used the scorpion to pass my FiberWire for the medial row. I showed all these fiber wires through the percutaneous incisions pulling them allowing me then to bring the graft medially. Before placing the graft inside completely I passed my fiber tape strands through the punch holes in the lateral row. Now using proper suture technique and management I was able then to fold the graft and then pulled the graft medially and completely inside the shoulder. I secured my medial row anteriorly and laterally placing my push locks in the predrilled hole. The remaining excess strands were cut and after having secured the medial row I then was able to crisscrossed the fiber tape and status my lateral row. Pictures were taken showing fixation of my dermal graft and nicely secured. Took pictures of my screws that also showed to have good purchase. Fluid from the shoulder was removed and then all portal sites were closed using 3-0 nylon. Xeroform 4 x 4 dressing were applied after quarter percent Marcaine local anesthetic was injected. The drapes were then covered with ABD pads and secured with Medipore tape. All drapes were removed and then the patient was placed in a sling and then a placed in a supine position where she was extubated and sent to PACU in stable condition.
== END 2018-04-22 17:35 | disposition home or self-care (01) ==
LOC: OROUT 08:28
PROVIDERS: ATTEND Orthopaedic Surgery
DX: M75.121 Complete rotator cuff tear or rupture of right shoulder, not specified as traumatic (principal); M25.511 Pain in right shoulder; M19.011 Primary osteoarthritis, right shoulder; K21.9 Gastro-esophageal reflux disease without esophagitis; E03.9 Hypothyroidism, unspecified; G62.9 Polyneuropathy, unspecified; Z88.5 Allergy status to narcotic agent; Z88.0 Allergy status to penicillin; Z88.2 Allergy status to sulfonamides; Z79.899 Other long term (current) drug therapy; Z87.891 Personal history of nicotine dependence; Z86.73 Personal history of transient ischemic attack (TIA), and cerebral infarction without residual deficits; Z01.810 Encounter for preprocedural cardiovascular examination; Z01.811 Encounter for preprocedural respiratory examination; Z01.812 Encounter for preprocedural laboratory examination
CPT/HCPCS: 71045; 29999; C1713 ×2; Q4125; J2250; J3490; J1100; J0171; J1885; J3010; J1170; J2370; J0330; J2405; J2704; A9270; 1630

== ENCOUNTER → 2019-03-08 | Outpatient (CLI) | payer MEDICARE, MEDICAID ==
[2019-03-08 16:00] LABS: ABSOLUTE EOSINOPHILS # (AUTO) 0.2 10^3/uL (0.0-0.6); ABSOLUTE MONOCYTES (AUTO) 0.5 10^3/uL (0.1-1.4); ABSOLUTE NEUT (AUTO) 6.7 10^3/uL (1.7-8.2); BASOPHILS % (AUTO) 0.5 % (0-2); EOSINOPHILS % (AUTO) 2.4 % (0-6); HEMATOCRIT 39.3 % (36.0-47.0); HEMOGLOBIN 13.2 g/dL (12.0-15.5); LYMPHOCYTES % (AUTO) 20.7 % (13-45); MEAN CORPUSCULAR HEMOGLOBIN 31.7 pg (27.0-33.4); MEAN CORPUSCULAR HGB CONC 33.7 g/dL (32.0-36.0); MEAN CORPUSCULAR VOLUME 94 fl (80-97); MONOCYTES % (AUTO) 5.5 % (3-13); PLATELET COUNT 212 10^3/uL (150-450); RED BLOOD COUNT 4.18 10^6/uL (3.72-5.28); RED CELL DISTRIBUTION WIDTH 14.1 % (11.5-14.0); SEGMENTED NEUTROPHILS % (AUTO) 70.9 % (42-78); TOTAL CELLS COUNTED % (AUTO) 100 %; WHITE BLOOD COUNT 9.5 10^3/uL (4.0-10.5)
[2019-03-08 16:23] LABS: ALBUMIN 4.4 g/dL (3.5-5.0); ALKALINE PHOSPHATASE 136 U/L (38-126); ANION GAP 10 (5-19); ASPARTATE AMINO TRANSFERASE 35 U/L (14-36); BILIRUBIN,DIRECT 0.3 mg/dL (0.0-0.4); BILIRUBIN,TOTAL 0.3 mg/dL (0.2-1.3); BLOOD UREA NITROGEN 21 mg/dL (7-20); CALCIUM 9.2 mg/dL (8.4-10.2); CARBON DIOXIDE 23 mmol/L (22-30); CHLORIDE 106 mmol/L (98-107); GLUCOSE 88 mg/dL (75-110); POTASSIUM 5.2 mmol/L (3.6-5.0); TOTAL PROTEIN 7.2 g/dL (6.3-8.2)
[2019-03-08 17:26] LABS: FOLATE 7.69 ng/mL (>2.76)
== END ==
LOC: OD 13:20
PROVIDERS: ATTEND Surgery
DX: Z48.89 Encounter for other specified surgical aftercare (principal); Z98.84 Bariatric surgery status
CPT/HCPCS: 36415; 80053; 82306; 82746; 84252; 84425; 84590; 85025

== ENCOUNTER → 2019-06-16 | Day surgery (SDC) | payer MEDICARE, MEDICAID ==
[~2019-06-16] MED LIST changes: +BUPIVACAINE HCL 0.5 % INJ/PF 30 ML SDV ONE; -CLINDAMYCIN 600 MG/D5W RTU 600 MG/50 ML RTUPB IV ONE; -CLINDAMYCIN 600 MG/D5W RTU 600 MG/50 ML RTUPB IV PRN; +LIDOCAINE 1% INJ-PF (10 MG/ML) 30 ML SDV ONE
--- NOTE | 2019-06-16 12:04 | Operative Report ---
PREOPERATIVE DIAGNOSIS: Spondylolisis without myopathy or radiculopathy M47.818// Lumbar Sacral Spondylolisis without myopathy or radiculopathy M47.817 POSTOPERATIVE DIAGNOSIS:Spondylolisis without myopathy or radiculopathy M47.818// Lumbar Sacral Spondylolisis without myopathy or radiculopathy M47.817 PROCEDURE: 1. Radiofrequency Ablation of bilateral L5 dorsal Ramus 2. Sacroiliac Joint Ablation - Lateral Branches of bilateral S1, S2, S3 DATE OF PROCEDURE: June 16, 2019 ANESTHESIA: Local COMPLICATIONS: None CONSENT: A full description of the procedure was provided including benefits as well as possible complications. All questions were answered and informed consent was given and signed. ASA guidelines for fasting were verified prior to sedation. PROCEDURE IN DETAIL The patient was brought into the fluoroscopy suite and carefully assisted into the prone position on the fluoroscopy table and allowed to adjust to a position of comfort. A grounding pad was placed on the right thigh. The low back and buttocks were widely prepped with a chloraprep solution, allowed to air dry and draped in standard sterile surgical fashion. Local anesthesia was provided by 12 mL of 1 % lidocaine delivered with a 25 g needle. PROCEDURE #1: Radiofrequency Ablation of Dorsal Ramus of bilateral L5. A 17g 100mm radiofrequency introducer needle was placed to the planned anatomic target, guided with intermittent fluoroscopy with a perpendicular approach, to terminally place at the bilateral sacral ala. The stylets were removed and the radiofrequency probes with a 4mm active tip were then inserted. Needle tip position of the probes were verified in the AP, oblique, and lateral views. At each site, the medial branch nerve was stimulated at 2Hz to a maximum of 1- 2volts determined to finalize safe needle and electrode placement. The patient was awake and responsive during this portion of the procedure. Each target was anesthetized with 2mL of 2 % Sensorcaine anesthesia for lesioning and then each target was lesioned at 80 degrees Celsius for 2 minutes and 30 seconds. Tissue impedences were noted to be between 250 and 500 Ohms. PROCEDURE #2: Radiofrequency Ablation of bilateral S1, S2, S3 Lateral Branches Using the AP fluoroscopic view for visualization of the lateral PSFA as defined by the pre-placed 27-gauge Quincke needles, appropriate skin starting positions were defined. Using the PSFA as a "clock-face", the positions were: S1; bilateral = 1 and 5 oclock S2; bilateral = 1 and 5 oclock S3; bilateral = 3 oclock Using fluoroscopic guidance, a 17g introducer needle was inserted sequentially onto the target positions described above until the introducer tip touched the bony surface of the sacrum. The stylet was withdrawn from the introducer and the radiofrequency probe with a 4 mm active tip was fully inserted into the introducer. A lateral view was obtained for standard reference. At each of the targets, needle placement was verified with the use of multi-planar fluoroscopy. The needle tip position was approximately 7 - 10mm lateral to the PSFA as determined by using an Epsilon ruler. At each site, the lateral branch nerve was stimulated at 2 Hz to a maximum of 1- 2 volts determined to finalize safe needle and electrode placement. The patient was awake and responsive during this portion of the procedure. Each target was anesthetized with 2 mL of 2 % Sensorcaine anesthesia for lesioning and then each target was lesioned at 80 degrees Celsius for 2 minutes and 30 seconds. Tissue impedences were noted to be between 250- 500 Ohms. At the conclusion of the lesioning the needles were removed and bandages placed over the needle placement sites and the patient returned to the supine position on a stretcher and trans ported to the recovery room without hemodynamic, neurologic, or allergic reactions. Fluoroscopic images were printed for hard copy recording and digitally archived. FLUOROSCOPIC INTERPRETATION: Appropriate epidurogram obtained. Appropriate lesioning of the 10 targets noted. POST PROCEDURE EVALUATION: The patient was comfortable in the recovery room. The patient is aware that pain may worsen before remitting and 4 6 weeks may be required prior to the onset of pain relief. IMPRESSION: 1. Technically successful sacral lateral branch, lumbar dorsal ramus for denervation from L5-S3 on the bilateral without complication. 2. RTC in 2 weeks. 3. Estimated Blood Loss: None 4. Fluoroscopy time: 30 seconds
== END ==
LOC: RAD 11:14
PROVIDERS: ATTEND Family Medicine
DX: M47.817 Spondylosis without myelopathy or radiculopathy, lumbosacral region (principal)
CPT/HCPCS: 64635; 64640 ×3; J3490 ×2

== ENCOUNTER → 2020-04-24 | Outpatient (CLI) | payer MEDICARE, MEDICAID ==
--- NOTE | 2020-04-24 15:22 | RADIOLOGY REPORT (SQ) ---
EXAM DESCRIPTION: CHEST PA/LATERAL IMAGES COMPLETED DATE/TIME: 04/24/2020 3:06 pm REASON FOR STUDY: PRE-OP COMPARISON: 06/23/2016 EXAM PARAMETERS: NUMBER OF VIEWS: two views TECHNIQUE: Digital Frontal and Lateral radiographic views of the chest acquired. RADIATION DOSE: NA LIMITATIONS: none FINDINGS: LUNGS AND PLEURA: Linear left basilar opacities, likely platelike atelectasis. No other c onsolidation. No pleural effusion or pneumothorax. MEDIASTINUM AND HILAR STRUCTURES: No masses or contour abnormalities. HEART AND VASCULAR STRUCTURES: Heart normal size. No evidence for failure. BONES: No acute findings. HARDWARE: None in the chest. OTHER: No other significant finding. IMPRESSION: Left basilar platelike atelectasis. No other evidence of acute intrathoracic process. TECHNICAL DOCUMENTATION: JOB ID: [id number] [employer]- All Rights Reserved Reading location - IP/workstation name: [email or web address]
[2020-04-24 15:35] LABS: APPEARANCE,URINE SLIGHTLY-CLOUDY; BILIRUBIN,URINE NEGATIVE (NEGATIVE); COLOR,URINE YELLOW; GLUCOSE, URINE NEGATIVE (NEGATIVE); KETONES,URINE NEGATIVE (NEGATIVE); LEUKOCYTE ESTERASE,URINE NEGATIVE (NEGATIVE); NITRITE,URINE NEGATIVE (NEGATIVE); PROTEIN,URINE NEGATIVE (NEGATIVE); URINE SPECIFIC GRAVITY 1.016
[2020-04-24 15:47] LABS: ABSOLUTE EOSINOPHILS # (AUTO) 0.2 10^3/uL (0.0-0.6); ABSOLUTE MONOCYTES (AUTO) 0.7 10^3/uL (0.1-1.4); ABSOLUTE NEUT (AUTO) 5.5 10^3/uL (1.7-8.2); BASOPHILS % (AUTO) 0.5 % (0-2); EOSINOPHILS % (AUTO) 2.5 % (0-6); HEMATOCRIT 40.1 % (36.0-47.0); HEMOGLOBIN 13.6 g/dL (12.0-15.5); LYMPHOCYTES % (AUTO) 23.6 % (13-45); MEAN CORPUSCULAR HEMOGLOBIN 31.4 pg (27.0-33.4); MEAN CORPUSCULAR VOLUME 93 fl (80-97); MONOCYTES % (AUTO) 8.2 % (3-13); PLATELET COUNT 221 10^3/uL (150-450); RED BLOOD COUNT 4.33 10^6/uL (3.72-5.28); RED CELL DISTRIBUTION WIDTH 13.4 % (11.5-14.0); SEGMENTED NEUTROPHILS % (AUTO) 65.2 % (42-78); TOTAL CELLS COUNTED % (AUTO) 100 %; WHITE BLOOD COUNT 8.5 10^3/uL (4.0-10.5)
[2020-04-24 15:58] LABS: ALBUMIN 4.2 g/dL (3.5-5.0); ANION GAP 8 (5-19); BLOOD UREA NITROGEN 15 mg/dL (7-20); C-REACTIVE PROTEIN 10.7 mg/L (<10.0); CALCIUM 9.1 mg/dL (8.4-10.2); CARBON DIOXIDE 24 mmol/L (22-30); CHLORIDE 107 mmol/L (98-107); GLUCOSE 111 mg/dL (75-110); POTASSIUM 4.6 mmol/L (3.6-5.0)
[2020-04-24 16:30] LABS: ERYTHROCYTE SEDIMENTATION RATE 29 mm/hr (0-30)
--- NOTE | 2020-04-24 19:03 | EKG REPORT ---
SEVERITY:- ABNORMAL ECG - SINUS RHYTHM LEFT ATRIAL ABNORMALITY BORDERLINE LEFT AXIS DEVIATION : Confirmed by: Segundo Hussein MD 24-Apr-2020 19:02:22
== END ==
LOC: OD 14:28
PROVIDERS: ATTEND Orthopaedic Surgery
DX: Z01.810 Encounter for preprocedural cardiovascular examination (principal); Z01.811 Encounter for preprocedural respiratory examination; Z01.812 Encounter for preprocedural laboratory examination; E16.2 Hypoglycemia, unspecified
CPT/HCPCS: 36415; 71046; 80048; 81001; 82040; 82306; 83036; 85025; 85652; 86140; 93005; 93010

== ENCOUNTER 2020-05-14 05:23 | Observation (INO) | payer MEDICARE, MEDICAID ==
[~2020-05-14 05:23] MED LIST changes: +ACETAMINOPHEN 325 MG TABLET PO PRN; -BUPIVACAINE HCL 0.5 % INJ/PF 30 ML SDV ONE; +CEFAZOLIN 2 GM/D5W RTU 2 GM/50 ML RTUPB IV PRN; +CELECOXIB 200 MG CAPSULE PO PRN; +GABAPENTIN 100 MG CAPSULE PO PRN; +LACTATED RINGERS 1000 ML IV PRN; +LIDOCAINE 0.5% INJ-PF (5 MG/ML) 50 ML SDV SUBCUT PRN; -LIDOCAINE 1% INJ-PF (10 MG/ML) 30 ML SDV ONE; +ONDANSETRON HCL INJ/PF 4 MG/2 ML SDV IV PRN; +OXYCODONE HCL SR 10 MG TABLET PO PRN; +PANTOPRAZOLE SODIUM 20 MG TABLET.DR PO PRN; +SCOPOLAMINE HYDROBROMIDE 1.5 MG PATCH.TD72 TD PRN; +TRANEXAMIC ACID INJ/PF 1,000 MG/10 ML SDV IV PRN; +VANCOMYCIN HCL 1,000 MG in DEXTROSE 5%-WATER 250 ML IV PRN
[2020-05-14] MEDS ORDERED: BUPIVACAINE HCL 0.25 % INJ/PF (2.5 MG/1 ML) 30 ML VIAL ONE (05:44)
[2020-05-14] MEDS ORDERED: KETOROLAC TROMETHAMINE INJ/PF 30 MG/1 ML SDV ONE (05:45)
[2020-05-14] MEDS ORDERED: LIDOCAINE 1% INJ-PF (10 MG/ML) 30 ML SDV ONE (05:45)
[2020-05-14] MEDS ORDERED: VANCOMYCIN HCL INJ 1000 MG VIAL ONE (05:45)
[2020-05-14] MEDS ORDERED: OXYCODONE HCL SR 10 MG TABLET PO ONE (05:55)
[2020-05-14] MEDS ORDERED: CEFAZOLIN 2 GM/D5W RTU 2 GM/50 ML RTUPB IV ONE (05:55)
[2020-05-14] MEDS ORDERED: ACETAMINOPHEN 325 MG TABLET ONE (05:55)
[2020-05-14] MEDS ORDERED: CELECOXIB 200 MG CAPSULE ONE (05:55)
[2020-05-14] MEDS ORDERED: SCOPOLAMINE HYDROBROMIDE 1.5 MG PATCH.TD72 ONE (05:56)
[2020-05-14] MEDS ORDERED: GABAPENTIN 100 MG CAPSULE ONE (05:56)
[2020-05-14] MEDS ORDERED: ONDANSETRON 4 MG TAB.RAPDIS ONE (05:56)
[2020-05-14] MEDS ORDERED: PANTOPRAZOLE SODIUM 20 MG TABLET.DR PO ONE ×2 (05:56→10:07)
[2020-05-14] MEDS ORDERED: LIDOCAINE 0.5% INJ-PF (5 MG/ML) 50 ML SDV ONE (06:17)
[2020-05-14] MEDS ORDERED: EPINEPHRINE INJ/PF 1 MG/1 ML AMPULE ONE (06:19)
[2020-05-14] MEDS ORDERED: FENTANYL CITRATE INJ/PF 100 MCG/2 ML AMPUL ONE ×3 (06:19→10:21)
[2020-05-14] MEDS ORDERED: EPHEDRINE SULFATE INJ 50 MG/1 ML AMPULE ONE (06:20)
[2020-05-14] MEDS ORDERED: PROPOFOL INJ 200 MG/20 ML VIAL IV ONE (06:20)
[2020-05-14] MEDS ORDERED: TRANEXAMIC ACID INJ/PF 1,000 MG/10 ML SDV ONE (06:20)
[2020-05-14] MEDS ORDERED: MIDAZOLAM 2 MG/2 ML INJ ONE (06:20)
[2020-05-14] MEDS ORDERED: ONDANSETRON HCL INJ/PF 4 MG/2 ML SDV ONE (06:20)
[2020-05-14] MEDS ORDERED: DEXAMETHASONE SOD PHOSPHATE INJ 4 MG/1 ML VIAL ONE (06:20)
[2020-05-14 07:04] LABS: INTERNATIONAL RATION (INR) 0.96
[2020-05-14] MEDS ORDERED: MEPERIDINE HCL/PF INJ 25 MG/1 ML DISP.SYRIN IV PRN (09:15)
[2020-05-14] MEDS ORDERED: DIPHENHYDRAMINE HCL 50 MG/ML VIAL IV PRN (09:15)
[2020-05-14] MEDS ORDERED: PROMETHAZINE HCL INJ 25 MG/1 ML VIAL IV PRN ×2 (09:15)
[2020-05-14] MEDS ORDERED: FENTANYL CITRATE INJ/PF 100 MCG/2 ML AMPUL IV PRN ×3 (09:15)
[2020-05-14] MEDS ORDERED: ONDANSETRON HCL INJ/PF 4 MG/2 ML SDV IV PRN (09:15)
--- NOTE | 2020-05-14 10:05 | Operative Report ---
Operative Report DATE OF SURGERY: 05/14/20 PREOPERATIVE DIAGNOSIS: Left knee primary osteoarthritis POSTOPERATIVE DIAGNOSIS: Left knee primary osteoarthritis OPERATION: Left total knee arthroplasty SURGEON: PAPO WORKMAN JR ANESTHESIA: Spinal COMPLICATIONS: none ESTIMATED BLOOD LOSS: 50 PROCEDURE: Components: [employer] journey 2 total knee: Size 6 PS femur, 5 x 9 tibia, and a 32 patella OPERATIVE PROCEDURE: Patient was brought to the operating room and spinal anesthesia was administered. After proper anesthesia was obtained, patient was positioned, padded, prepped, and draped in the usual sterile fashion on the operating room table. 2 grams of Ancef and 1 g of vancomycin were given. Appropriate time out was performed. Anterior incision and medial-parapatella approach was performed. Severe degenerative arthritis was noted. Osteophytes were removed from the femur and tibia, and the remainder of the ACL and PCL were removed. The proximal tibia was then prepared and cut perpendicular to the tibial shaft axis and measured to a 5 tibia. The distal femur was drilled, the canal was irrigated and the distal femoral guide was placed. The distal femur was cut 12 mm to 5 degrees of varus. An extension 10 block was placed in the gap was found to be appropriate. The tensor was placed in extension and the extension gap was balanced with releases until the goniometer on the tensor measured to 0. The tensor was placed in flexion and the femur was sized to 6. Drill holes were placed to the appropriate femoral rotation. The 4 and 1 block was placed and the flexion gap was then re-checked with the tensor adapter and found to be appropriate. Anterior and posterior cuts as well as chamfer cuts were made. Posterior osteophytes were removed. The femoral trial was then placed, and the notch was cut. The combination of the tibial baseplate and the 9 mm polyethylene liner were then placed and the knee was taken through a range of motion with the trials in. This had excellent balance in extension and flexion as well as patellar tracking. The patella AP aspect was measured to 23 mm and the patella was cut parallel to the anterior patella surface. A 32 mm button was placed medially and superiorly as possible and the patella-button construct was then measured to be 25 mm. This was again taken through a range of motion and found to have excellent balance, stability and ease of full motion. The rotation of the tibial baseplate was marked, the tibial was anteriorly subluxed and the tibial component was pinned and drilled and punched. All the trials were then removed and the wound was copiously irrigated with sterile saline followed by a Betadine soak. After pulsatile irrigation of the rachele and soft tissue surfaces, the rachele surfaces were cleaned and dried, and cementation of the femur, tibia, and patella was performed. All excess cement was thoroughly removed. The knee was placed in slight flexion until cement was hard. Periarticular injection with Lidocaine, Marcaine and Toradol was performed. The knee was irrigated copiously. A gram of Vancomycin was placed intra-articularly. The extensor mechanism was closed with 0 vicryl tacking sutures and number 2 Stratofix. The subcutaneous tissue was closed with 2-0 monocryl and the skin closed with 2-0 running monocryl. A silver dressing was applied. All needle sponge and instrument counts were correct. Patient was awakened from sedation anesthesia and taken to recovery room in good condition. Papo Workman DO
[2020-05-14] MEDS ORDERED: ONDANSETRON 4 MG TAB.RAPDIS PO PRN (10:07)
[2020-05-14] MEDS ORDERED: ZOLPIDEM TARTRATE 5 MG TABLET PO PRN (10:07)
[2020-05-14] MEDS ORDERED: NORMAL SALINE 1000 ML 1,000 ML IV ONE (10:07)
[2020-05-14] MEDS ORDERED: TRAMADOL HCL 50 MG TABLET PO PRN (10:07)
[2020-05-14] MEDS ORDERED: OXYCODONE HCL IR 5 MG TABLET PO PRN ×3 (10:07)
[2020-05-14] MEDS ORDERED: DOCUSATE SODIUM 100 MG CAPSULE PO PRN (10:07)
[2020-05-14] MEDS ORDERED: MORPHINE SULFATE 10 MG/ML INJ IV PRN (10:07)
[2020-05-14] MEDS ORDERED: DEXAMETHASONE SOD PHOS INJ 10 MG/1 ML VIAL IV ONE (10:07)
[2020-05-14] MEDS ORDERED: DIPHENHYDRAMINE HCL 25 MG CAPSULE PO PRN (10:07)
[2020-05-14] MEDS ORDERED: TRANEXAMIC ACID INJ/PF 1,000 MG/10 ML SDV IV ONE (10:07)
[2020-05-14] MEDS ORDERED: SUMATRIPTAN SUCCINATE 50 MG TABLET PO PRN (10:10)
[2020-05-14] MEDS ORDERED: MORPHINE SULFATE 10 MG/ML INJ ONE (10:25)
[2020-05-14] MEDS: MORPHINE SULFATE 10 MG/ML INJ IV PRN ×3 (10:27→21:05)
--- NOTE | 2020-05-14 11:13 | RADIOLOGY REPORT (SQ) ---
EXAM DESCRIPTION: KNEE LEFT 2 VIEWS IMAGES COMPLETED DATE/TIME: 05/14/2020 10:53 am REASON FOR STUDY: Postop M17.12 UNILATERAL PRIMARY OSTEOARTHRITIS, LEFT KNEE Z79.01 CHIEF OF HOSPITAL MEDICINE (CUR RENT) USE OF ANTICOAGULANTS COMPARISON: None. NUMBER OF VIEWS: Two view(s). TECHNIQUE: Digital radiographic images of the left knee post-procedure. LIMITATIONS: None. FINDINGS: BONES: No worrisome or unexpected findings post-procedure. DEVICE: Total knee arthroplasty. SOFT TISSUES: No worrisome findings. Expected postoperative soft tissue changes. IMPRESSION: SATISFACTORY POSTOPERATIVE LEFT KNEE. TECHNICAL DOCUMENTATION: JOB ID: [id number] 2010 [employer]- All Rights Reserved Reading location - IP/workstation name: [email or web address]
[2020-05-14] MEDS: KETOROLAC TROMETHAMINE INJ/PF 30 MG/1 ML SDV IV SCH ×2 (13:05→21:06)
[2020-05-14] MEDS: ACETAMINOPHEN 325 MG TABLET PO SCH ×3 (13:05→23:05)
[2020-05-14] MEDS ORDERED: CEFAZOLIN 2 GM/D5W RTU 2 GM/50 ML RTUPB IV SCH (14:00)
[2020-05-14] MEDS ORDERED: SUCCINYLCHOLINE CHLORIDE INJ 200 MG/10 ML VIAL ONE (15:38)
[2020-05-14] MEDS: OXYCODONE HCL IR 5 MG TABLET PO PRN (15:54)
[2020-05-14] MEDS: CEFAZOLIN SODIUM 2 GM in DEXTROSE 5%-WATER 100 ML IV SCH ×2 (15:55→21:05)
[2020-05-14] MEDS ORDERED: ELETRIPTAN HYDROBROMIDE 40 MG PO SCH (18:00)
[2020-05-14] MEDS: QUETIAPINE FUMARATE 100 MG TABLET PO SCH (21:07)
[2020-05-14] MEDS: GABAPENTIN 100 MG CAPSULE PO SCH (21:07)
[2020-05-14] MEDS: LORAZEPAM 1 MG TABLET PO SCH (21:09)
[2020-05-14] MEDS ORDERED: (PENDING PHARMACY ID) (Quetiapine Fumarate [Seroquel] 400 MG) PO SCH (22:00)
--- NOTE | 2020-05-15 05:30 | PDOC PROGRESS REPORT ---
Subjective Progress Note for:: 05/15/20 Subjective:: Patient doing well. Pain well controlled. Reports working well with physical therapy yesterday. At this time she is concerned about the potential discharge home as she does not feel she can adequately take care of herself without further assistance. Reason For Visit: LEFT KNEE PRIMARY OSTEOARTHRITIS Physical Exam Vital Signs: Temp Pulse Resp BP Pulse Ox 97.7 F 73 19 112/54 L 95 05/14/20 23:34 05/14/20 23:34 05/14/20 23:34 05/14/20 23:34 05/15/20 03:34 Intake & Output 05/13/20 05/14/20 05/15/20 06:59 06:59 06:59 Intake Total 250 6550 Output Total 75 Balance 250 6475 Weight 108 kg 109.6 kg Physical Exam: No acute distress, alert and orient x3 Left lower extremity -Pulses 2+ distally -Compartments soft -Sensation grossly intact to L3-4-5 S1 -Motor grossly intact to EHL TA gastroc and quad Dressing clean dry and intact Results Laboratory Results: 05/14/20 06:39 Blood Type O POSITIVE Antibody Screen NEGATIVE Impressions: Knee X-Ray 05/14/20 10:09 IMPRESSION: SATISFACTORY POSTOPERATIVE LEFT KNEE. Assessment & Plan - Diagnosis (1) Status post total left knee replacement Is this a current diagnosis for this admission?: Yes Plan: -At this time the patient does not yet feel comfortable returning home by herself. I will discuss this with case management and see if there is any further actions that we can take to ensure appropriate discharge home. She will likely stay another night and be discharged tomorrow. - 2 doses of Ancef postoperatively q 8 hours to complete 24 hours perioperatively -Weightbearing as tolerated, no precautions, encourage out of bed CARLENE for ADL training - PT/OT - Keep knee extended in bed, rolled towel under the ankle to obtain full extension -aspirin 325 daily for DVT prophylaxis for 6 weeks -multimodal pain management to avoid excessive narcotics, including gabapentin, tramadol, Toradol, acetaminophen. -Dressing should not be removed for 7 to 10 days until seen in the office -May shower with the dressing intact, if it starts to come off she should not get the incision wet. -Follow-up with Dr. Papo Shore, orthopedic surgeon at [facility] for surgery, in 10 days. Call for an appointment. . [address], [place] [address] - Time Time Spent with patient: Less than 15 minutes
[2020-05-15] MEDS: KETOROLAC TROMETHAMINE INJ/PF 30 MG/1 ML SDV IV SCH ×2 (05:38→13:45)
[2020-05-15] MEDS: ACETAMINOPHEN 325 MG TABLET PO SCH ×4 (05:39→23:19)
[2020-05-15] MEDS ORDERED: INFLUENZA QUAD (6MOS+) 2020-21 VAC 0.5 ML SYR IM ONE (08:00)
[2020-05-15] MEDS: POLYETHYLENE GLYCOL 3350 POWDER 17 GM/1 PACKET PO SCH (09:49)
[2020-05-15] MEDS: GABAPENTIN 100 MG CAPSULE PO SCH ×2 (09:49→21:16)
[2020-05-15] MEDS: CELECOXIB 200 MG CAPSULE PO SCH (09:49)
[2020-05-15] MEDS: ASPIRIN 325 MG TABLET PO SCH (09:49)
[2020-05-15] MEDS: LEVOTHYROXINE SODIUM 0.088 MG TABLET PO SCH (09:50)
[2020-05-15] MEDS: OXYCODONE HCL IR 5 MG TABLET PO PRN ×2 (09:50→20:31)
[2020-05-15] MEDS ORDERED: DULOXETINE HCL 20 MG CAPSULE.DR PO SCH (10:00)
[2020-05-15] MEDS: QUETIAPINE FUMARATE 100 MG TABLET PO SCH (21:15)
[2020-05-15] MEDS: LORAZEPAM 1 MG TABLET PO SCH (21:16)
[2020-05-15] MEDS: MORPHINE SULFATE 10 MG/ML INJ IV PRN (21:20)
[2020-05-16] MEDS: ACETAMINOPHEN 325 MG TABLET PO SCH (05:19)
--- NOTE | 2020-05-16 07:56 | PDOC PROGRESS REPORT ---
Subjective Progress Note for:: 05/16/20 Subjective:: Patient doing well today. Reports a migraine overnight. Otherwise nursing staff reports that she has been doing well and ambulating on her own well. Patient is apprehensive about her pain but otherwise seems to be doing well. Reason For Visit: LEFT KNEE PRIMARY OSTEOARTHRITIS Physical Exam Vital Signs: Temp Pulse Resp BP Pulse Ox 97.6 F 80 18 109/64 96 05/15/20 23:32 05/15/20 23:32 05/15/20 23:32 05/15/20 23:32 05/15/20 23:32 Intake & Output 05/15/20 05/16/20 05/17/20 06:59 06:59 06:59 Intake Total 6550 2275 Output Total 75 Balance 6475 2275 Weight 110.8 kg 111.7 kg Physical Exam: No acute distress alert and orient x3 Left lower extremity -Pulses 2+ distally -Compartments soft -Sensation grossly intact to L3-4-5 S1 -Motor grossly intact to EHL TA gastroc and quad Dressing clean dry and intact Results Impressions: Knee X-Ray 05/14/20 10:09 IMPRESSION: SATISFACTORY POSTOPERATIVE LEFT KNEE. Assessment & Plan - Diagnosis (1) Status post total left knee replacement Is this a current diagnosis for this admission?: Yes Plan: - 2 doses of Ancef postoperatively q 8 hours to complete 24 hours periopera tively -Weightbearing as tolerated, no precautions, encourage out of bed CARLENE for ADL training - PT/OT - Keep knee extended in bed, rolled towel under the ankle to obtain full extension -aspirin 325 daily for DVT prophylaxis for 6 weeks -multimodal pain management to avoid excessive narcotics, including gabapentin, tramadol, Toradol, acetaminophen. -Dressing should not be removed for 7 to 10 days until seen in the office -May shower with the dressing intact, if it starts to come off she should not get the incision wet. -Follow-up with Dr. Papo Shore, orthopedic surgeon at [facility] for surgery, in 10 days. Call for an appointment. . [address], [place] [address] - Time Time Spent with patient: Less than 15 minutes
--- NOTE | 2020-05-16 07:57 | Discharge Summary ---
Discharge Summary (SDC) - Discharge Final Diagnosis: Left total knee arthroplasty Date of Surgery: 05/14/20 Condition: Stable Treatment or Instructions: Full details of postoperative instructions have been provided to the patient in the clinic. Additionally they should maintain their bandage in place for 10 days, and then changed to a dry dressing. They can take showers with this occlusive dressing but any further dressing should also be occlusive. No showers with the wound unprotected until cleared by me in the clinic. If the bandage falls off early or become saturated they can change as needed to another occlusive dressing. Follow-up with Dr. Papo Workman, orthopedic surgeon at [facility] for surgery, in 10 days. Call for an appointment. . [address], [place] [address] Referrals: PAPO WORKMAN JR, DO [ACTIVE PROVISIONAL STAFF] - Respiratory Treatments at Home: Deep Breathing/Coughing Discharge Activity: Activity As Tolerated, No Driving, Keep Legs Elevated, No tub bath, Walk Frequently Activities Provided by Home Health Agency: Physical Therapy Adaptive Devices on Discharge: Rolling Walker, Bedside Commode Report the Following to Your Physician Immediately: Fever over 101 Degrees, Unusual Bleeding, Drainage-Yellow
[2020-05-16] MEDS: OXYCODONE HCL IR 5 MG TABLET PO PRN (08:24)
[2020-05-16 08:29] VITALS: BP 145/52
[2020-05-16] MEDS: LEVOTHYROXINE SODIUM 0.088 MG TABLET PO SCH (09:14)
[2020-05-16] MEDS: GABAPENTIN 100 MG CAPSULE PO SCH (09:14)
[2020-05-16] MEDS: CELECOXIB 200 MG CAPSULE PO SCH (09:14)
[2020-05-16] MEDS: ASPIRIN 325 MG TABLET PO SCH (09:14)
[2020-05-16] MEDS: POLYETHYLENE GLYCOL 3350 POWDER 17 GM/1 PACKET PO SCH (09:17)
[2020-05-16] MEDS ORDERED: DULOXETINE HCL 30 MG CAPSULE.DR PO SCH (10:00)
== END 2020-05-16 11:22 | disposition home or self-care (01) ==
LOC: OROUT 05:23 → 4S 10:07
PROVIDERS: ADMIT Orthopaedic Surgery; ATTEND Orthopaedic Surgery
DX: M17.12 Unilateral primary osteoarthritis, left knee (principal); E66.9 Obesity, unspecified; G43.909 Migraine, unspecified, not intractable, without status migrainosus; K21.9 Gastro-esophageal reflux disease without esophagitis; Z60.2 Problems related to living alone; E07.9 Disorder of thyroid, unspecified; Z79.01 Long term (current) use of anticoagulants; Z23 Encounter for immunization; Z98.84 Bariatric surgery status; Z68.37 Body mass index [BMI] 37.0-37.9, adult; F17.210 Nicotine dependence, cigarettes, uncomplicated; Z86.73 Personal history of transient ischemic attack (TIA), and cerebral infarction without residual deficits; Z03.818 Encounter for observation for suspected exposure to other biological agents ruled out; Z79.890 Hormone replacement therapy
CPT/HCPCS: 86900; 86901; 36415; 86850; 85610; 85730; 73560; 90686; 97530 ×3; 97110 ×3; 97116 ×3; 97162; 97535 ×2; 97167; 01402; 27447; G0378 ×3; G0008; C1713 ×3; C1776 ×2; U0003; A9270 ×27; J2250; J0690 ×2; J1100; J3010; J3490 ×5; J1885 ×2; J2270 ×2; J0330; J2405; J7060 ×2; J7030; J2704; J3370; C9803; 87635; 90471; J0171; S0119

== ENCOUNTER 2020-05-17 14:28 | Observation (INO) | payer MEDICARE, MEDICAID ==
[2020-05-17 15:09] LABS: ABSOLUTE LYMPHOCYTES (AUTO) 0.8 10^3/uL (0.5-4.7); ABSOLUTE MONOCYTES (AUTO) 0.7 10^3/uL (0.1-1.4); ABSOLUTE NEUT (AUTO) 6.5 10^3/uL (1.7-8.2); BASOPHILS % (AUTO) 0.3 % (0-2); EOSINOPHILS % (AUTO) 0.6 % (0-6); HEMATOCRIT 32.6 % (36.0-47.0); HEMOGLOBIN 11.1 g/dL (12.0-15.5); LYMPHOCYTES % (AUTO) 9.5 % (13-45); MEAN CORPUSCULAR HEMOGLOBIN 31.1 pg (27.0-33.4); MEAN CORPUSCULAR VOLUME 91 fl (80-97); MONOCYTES % (AUTO) 8.5 % (3-13); PLATELET COUNT 201 10^3/uL (150-450); RED BLOOD COUNT 3.57 10^6/uL (3.72-5.28); RED CELL DISTRIBUTION WIDTH 13.6 % (11.5-14.0); SEGMENTED NEUTROPHILS % (AUTO) 81.1 % (42-78); TOTAL CELLS COUNTED % (AUTO) 100 %; VENOUS BLOOD BASE EXCESS -2.1 mmol/L; VENOUS BLOOD HCO3 22.3 mmol/L (20-32); VENOUS BLOOD PCO2 36.8 mmHg (35-63); VENOUS BLOOD PH 7.4 (7.30-7.42)
[2020-05-17 15:18] LABS: INTERNATIONAL RATION (INR) 1.08; PROTHROMBIN TIME 14.2 SEC (11.4-15.4)
[2020-05-17 15:27] LABS: ALBUMIN 3.8 g/dL (3.5-5.0); ALKALINE PHOSPHATASE 117 U/L (38-126); ANION GAP 11 (5-19); ASPARTATE AMINO TRANSFERASE 32 U/L (14-36); BILIRUBIN,DIRECT 0.4 mg/dL (0.0-0.4); BLOOD UREA NITROGEN 19 mg/dL (7-20); CALCIUM 8.9 mg/dL (8.4-10.2); CARBON DIOXIDE 21 mmol/L (22-30); CHLORIDE 107 mmol/L (98-107); GLUCOSE 112 mg/dL (75-110); POTASSIUM 4.2 mmol/L (3.6-5.0); TOTAL PROTEIN 6.7 g/dL (6.3-8.2)
[2020-05-17 15:29] LABS: ALCOHOL < 10 mg/dL (NONE DETECTED)
[2020-05-17] MEDS ORDERED: NORMAL SALINE 1000 ML 1,000 ML IV ONE (15:51)
--- NOTE | 2020-05-17 15:53 | ER Document Report ---
Entered by DAVID LARSON SCRIBE 05/17/20 1546 Acting as scribe for:FLORIDA CATHERINE DO ED General - General Chief Complaint: Altered Mental Status Stated Complaint: ALTERED MENTAL STATUS Primary Care Provider: CHERELLE PATEL MD [Primary Care Provider] - Follow up as needed Information source: Patient, Emergency Med Personnel Notes: This 65 year old female patient presents to the emergency department today with a possible altered mental status. Patient's neighbor called for EMS area captain after h earing calls for help. Per EMS, patient was 91% on room air, weak, confused, and had a altered mental status on their arrival. Patient states she lives alone but has family in the area. Patient reports a total left knee replacement by Dr. Shore, and was discharged yesterday. Patient states there is a spot on her left foot bothering her and has not yet taken any prescribed pain medications or aspi rin after her knee surgery. Patient reports dull chest pain since yesterday and has not taken anything to relieve the pain. Denies any recent fever or urinary symptoms. Patient states she smokes and has a smokers cough. TRAVEL OUTSIDE OF THE [place] IN LAST 30 DAYS: No - Related Data Allergies/Adverse Reactions: hydrocodone [From [place]] Allergy (Mild, Verified 05/14/20 05:46) lithium [[place]] Allergy (Mild, Verified 05/14/20 05:46) Hives nifedipine [From Procardia] Allergy (Mild, Verified 05/14/20 05:46) Hives paroxetine HCl [From Paxil] Allergy (Mild, Verified 05/14/20 05:46) Hives Penicillins Allergy (Mild, Verified 05/14/20 05:46) Hives Sulfa (Sulfonamide Antibiotics) Allergy (Mild, Verified 05/14/20 05:46) Hives acetaminophen [From Cocet] Adverse Reaction (Intermediate, Verified 05/14/20 05:46) VOMITING codeine [Codeine] Adverse Reaction (Mild, Verified 05/14/20 05:46) Vomiting paroxetine [From Paxil] Adverse Reaction (Verified 05/14/20 05:46) Involuntary movement(arm), Confusion pentazocine [From [place]] Adverse Reaction (Verified 05/14/20 05:46) Nausea/Vomiting paper tape Allergy (Uncoded 05/14/20 05:46) Past Medical History - General Information source: Patient, Emergency Med Personnel - Social History Smoking Status: Current Every Day Smoker Cigarette use (# per day): Yes Frequency of alcohol use: None Drug Abuse: None Lives with: Alone Family History: Other - CHF - Past Medical History Cardiac Medical History: Reports: Hx Atrial Fibrillation Pulmonary Medical History: Reports: Hx Pneumonia Neurological Medical History: Reports: Hx Migraine Endocrine Medical History: Reports: Hx Hypothyroidism Renal/ Medical History: Reports: Hx Ovarian Cysts - often, break upon standing GI Medical History: Reports: Hx Irritable Bowel Musculoskeletal Medical History: Reports Hx Arthritis - THROUGHOUT Psychiatric Medical History: Reports: Hx Bipolar Disorder, Hx Depression, Hx Post Traumatic Stress Disorder - after loss of father 1992 Past Surgical History: Reports: Hx Abdominal Surgery, Hx Cholecystectomy, Hx Gastric Bypass Surgery - 2001, Hx Hysterectomy, Hx Orthopedic Surgery - R knee surgery, L knee, R shoulder, L shoulder, R hip, Hx Tonsillectomy - adenoids, Hx Tubal Ligation - Immunizations Hx Diphtheria, Pertussis, Tetanus Vaccination: No Review of Systems - Review of Systems Constitutional: See HPI. denies: Fever EENT: No symptoms reported Cardiovascular: See HPI, Chest pain - dull Respiratory: See HPI Gastrointestinal: No symptoms reported Genitourinary: See HPI Female Genitourinary: No symptoms reported Musculoskeletal: See HPI Skin: No symptoms reported Hematologic/Lymphatic: No symptoms reported Neurological/Psychological: See HPI, Confusion -: Yes All other systems reviewed and negative Physical Exam - Vital signs Vitals: Temp Resp BP Pulse Ox 98.6 F 18 139/63 H 96 05/17/20 14:37 05/17/20 14:37 05/17/20 14:37 05/17/20 14:37 - General General appearance: Appears well, Alert - HEENT Head: Normocephalic, Atraumatic Eyes: Normal Pupils: PERRL Mucous membranes: Dry - Respiratory Respiratory status: No respiratory distress Chest status: Nontender Chest palpation: Normal Notes: Diminished breath sounds to bilateral bases. - Cardiovascular Rhythm: Regular Heart sounds: Normal auscultation Murmur: No - Abdominal Inspection: Obese Distension: No distension Bowel sounds: Normal Tenderness: Nontender - Extremities General upper extremity: Normal inspection, Normal ROM Notes: Skin around the left knee is mildly warm and there is no drainage from the incision site. Moderate soft tissue swelling from the left lower leg to the thigh. Trace peripheral edema to the bilateral lower extremities and distal pulses are intact bilaterally. - Neurological Neuro grossly intact: Yes Orientation: AAOx4 Danny Coma Scale Eye Opening: Spontaneous [place] Coma Scale Verbal: Oriented Danny Coma Scale Motor: Obeys Commands Danny Coma Scale Total: 15 Sensory: Normal Notes: Slow to answer and respond to questions. - Psychological Associated symptoms: Normal affect, Normal mood Notes: Slightly confused. - Skin Skin Temperature: Warm Skin Moisture: Dry Skin Color: Normal Course - Re-evaluation Re-evalutation: 05/17/20 18:20 MDM 65 year old female pod #3 for L TKR is here with SOB a left lingular pe and metabolic encephalopathy and acute kidney injury. IVF has been initiated for the kidney injury and I have discussed the pt with Dr. Gomez who has graciously agreed to see and evaluate the pt for admission. We are awaiting a bed presently. - Vital Signs Vital signs: Temp Pulse Resp BP Pulse Ox 98.6 F 21 H 121/50 L 96 05/17/20 14:37 05/17/20 15:01 05/17/20 15:01 05/17/20 15:01 - Laboratory Result Diagrams: 05/17/20 14:45 05/17/20 14:45 Laboratory results interpreted by me: 05/17/20 05/17/20 14:45 14:45 RBC 3.57 L Hgb 11.1 L Hct 32.6 L Lymph % (Auto) 9.5 L Seg Neutrophils % 81.1 H Carbon Dioxide 21 L Creatinine 1.48 H Est GFR ( Amer) 43 L Est GFR (MDRD) Non-Af 35 L Glucose 112 H - Diagnostic Test Radiology reviewed: Image reviewed, Reports reviewed - EKG Interpretation by Me EKG shows normal: Sinus rhythm Rate: Normal Rhythm: NSR - NSR Left Desha [address] elevation or depression my interpretation. Critical Care Note - Critical Care Note Total time excluding time spent on procedures (mins): 30 Comments: Critical Care time reflects time at bedside examining pt and discussing her and her results as well as designing treatment plan with the hospitalist team and initiating lovenex therapy for the pe that was detected and reviewing the studies obtained here today as well as reviewing the nursing notes and previous medical which included, but were not limited to the recent surgery chart. I also received the doppler report that the left leg shows no evidence of a dvt. Discharge - Discharge Clinical Impression: Hypoxia, Acute kidney injury Pulmonary embolism Qualifiers: Pulmonary embolism type: unspecified Chronicity: acute Acute cor pulmonale pres ence: without acute cor pulmonale Qualified Code(s): I26.99 - Other pulmonary embolism without acute cor pulmonale Condition: Stable Disposition: ADMITTED OBSERVATION Admitting Provider: Jason (Hospitalist) Unit Admitted: Medical Floor Referrals: CHERELLE PATEL MD [Primary Care Provider] - Follow up as needed I personally performed the services described in the documentation, reviewed and edited the documentation which was dictated to the scribe in my presence, and it accurately records my words and actions.
--- NOTE | 2020-05-17 17:23 | RADIOLOGY REPORT (SQ) ---
EXAM DESCRIPTION: VENOUS UNILATERAL LOWER IMAGES COMPLETED DATE/TIME: 05/17/2020 5:09 pm REASON FOR STUDY: left leg pain/ post op COMPARISON: None. TECHNIQUE: Dynamic and static valencia scale and color images acquired of the left leg venous system. Se lected spectral images acquired with additional compression and augmentation maneuvers. The contralat eral common femoral vein and saphenofemoral junction were also imaged. Images stored on PACS. LIMITATIONS: None. FINDINGS: COMMON FEMORAL: Normal phasicity, compression and augmentation. No visualized echogenic ma terial on valencia scale. No defects on color images. FEMORAL: Normal compression and augmentation. No visualized echogenic material on valencia scale. No defe cts on color images. POPLITEAL: Normal compression, augmentation. No visualized echogenic material on valencia scale. No defec ts on color images. CALF VESSELS: Normal compression, augmentation. No visualized echogenic material on valencia scale. No de fects on color images. GSV and SSV: Normal compression, augmentation. No visualized echogenic material on valencia scale. No def ects on color images. ANY DEEP VENOUS INSUFFICIENCY: Not evaluated. ANY EVIDENCE OF POPLITEAL CYST: No. OTHER: No other significant finding. CONTRALATERAL COMMON FEMORAL VEIN AND SAPHENOFEMORAL JUNCTION: Normal phasicity, compression and augmentation. No visualized echogenic material on valencia scale. No de fects on color images. IMPRESSION: NO EVIDENCE DVT OR SVT IN THE LEFT LEG. TECHNICAL DOCUMENTATION: JOB ID: [id number] 2010 [employer]- All Rights Reserved Reading location - IP/workstation name: [email or web address]
--- NOTE | 2020-05-17 17:45 | RADIOLOGY REPORT (SQ) ---
EXAM DESCRIPTION: CHEST SINGLE VIEW IMAGES COMPLETED DATE/TIME: 05/17/2020 5:30 pm REASON FOR STUDY: sob COMPARISON: 04/24/2020 EXAM PARAMETERS: NUMBER OF VIEWS: One view. TECHNIQUE: Single frontal radiographic view of the chest acquired. RADIATION DOSE: NA LIMITATIONS: None. FINDINGS: LUNGS AND PLEURA: Increasing perihilar atelectasis. No pneumothorax. MEDIASTINUM AND HILAR STRUCTURES: No masses. Contour normal. HEART AND VASCULAR STRUCTURES: Heart normal in size. Normal vasculature. BONES: No acute findings. HARDWARE: None in the chest. OTHER: No other significant finding. IMPRESSION: Increasing perihilar atelectasis. TECHNICAL DOCUMENTATION: JOB ID: [id number] 2010 [employer]- All Rights Reserved Reading location - IP/workstation name: [email or web address]
--- NOTE | 2020-05-17 18:04 | EKG REPORT ---
SEVERITY:- ABNORMAL ECG - SINUS RHYTHM PROBABLE LEFT VENTRICULAR HYPERTROPHY : Confirmed by: Waylon Scott MD 17-May-2020 18:04:21
--- NOTE | 2020-05-17 18:08 | RADIOLOGY REPORT (SQ) ---
EXAM DESCRIPTION: CTA CHEST IMAGES COMPLETED DATE/TIME: 05/17/2020 5:40 pm REASON FOR STUDY: sob COMPARISON: None. TECHNIQUE: CT scan of the chest performed using helical scanning technique with dynamic intravenous contrast injection. Images reviewed with lung, soft tissue and bone windows. Reconstructed coronal and sagittal MPR images reviewed. Additional 3 dimensional post-processing performed to develop Maximal Intensity Projection images (PA P). All images stored on PACS. All CT scanners at this facility use dose modulation, iterative reconstruction, and/or weight based d osing when appropriate to reduce radiation dose to as low as reasonably achievable (ALARA). [facility]: Dose Right [facility]: CareDose [facility]: Dose Right [facility]: Teradose 4D [facility]: ERCOM CONTRAST TYPE AND DOSE: contrast/concentration: Isovue 350.00 mmol/ml; Total Contrast Delivered: 75. 0 ml; Total Saline Delivered: 75.0 ml Contrast bolus adequate for pulmonary arteries and aorta. RENAL FUNCTION: BUN 19 creatinine 1.48 RADIATION DOSE: CT Rad equipment meets quality standard of care and radiation dose reduction techniq ues were employed. CTDIvol: 28.1 - 42.3 mGy. DLP: 1501 mGy-cm. . LIMITATIONS: None. FINDINGS: LUNGS AND PLEURA: Very limited, very faintly defined peripheral ground-glass infiltrates. Atelectatic changes in the lower lobes. AORTA AND GREAT VESSELS: No aneurysm. No dissection. HEART: No pericardial effusion. No significant coronary artery calcifications. PULMONARY ARTERIES: There appears to be limited thrombus in the lingular pulmonary artery. See image s 48 and 49 series 3 HILAR AND MEDIASTINAL STRUCTURES: No identified masses or abnormal nodes. HARDWARE: None in the chest. UPPER ABDOMEN: No significant findings. Limited exam. THYROID AND OTHER SOFT TISSUES: No masses. No adenopathy. BONES: No acute or significant finding. 3D MIPS: Confirm above findings. OTHER: No other significant finding. IMPRESSION: 1. There appears to be a very limited pulmonary embolus in the lingular pulmonary arter y. 2. There is no aortic aneurysm or dissection. 3. There are very limited, very faintly defined peripheral ground-glass infiltrates. May represent an atypical infectious/ inflammatory process. 4. Lower lobe atelectatic changes are present. COMMENT: Quality ID # [id number]: Final reports with documentation of one or more dose reduction techniques (e.g., Automated exposure control, adjustment of the mA and/or kV according to patient size, use of iterative reconstruction technique) TECHNICAL DOCUMENTATION: JOB ID: [id number] 2010 [employer]- All Rights Reserved Reading location - IP/workstation name: [email or web address]
[2020-05-17] MEDS ORDERED: ENOXAPARIN SODIUM INJ 120 MG/0.8 ML DISP.SYRIN SUBCUT ONE (18:30)
[2020-05-17] MEDS ORDERED: ACETAMINOPHEN 325 MG TABLET PO PRN (18:40)
[2020-05-17] MEDS ORDERED: MAG HYDROX/AL HYDROX/SIMETH SUSP 30 ML UDCUP PO PRN (18:40)
[2020-05-17] MEDS ORDERED: IPRATROPIUM/ALBUTEROL 0.5-2.5 MG/3 ML AMPUL NEB PRN (18:40)
[2020-05-17] MEDS ORDERED: ONDANSETRON HCL INJ/PF 4 MG/2 ML SDV IV PRN (18:40)
[2020-05-17] MEDS ORDERED: IBUPROFEN 400 MG TABLET PO PRN (18:44)
[2020-05-17] MEDS ORDERED: NORMAL SALINE 1000 ML 1,000 ML IV PRN (18:46)
--- NOTE | 2020-05-17 18:51 | PDOC H&P ---
History of Present Illness Admission Date/PCP: 05/17/20 18:37 CHERELLE PATEL MD Patient complains of: Altered mental status History of Present Illness: TILA BOONE is a 65 year old female with history of recent left knee surgery 3 days ago, who presents to the hospital via EMS for evaluation of altered mental status. Patient was noted to be groggy at home with difficulty getting up from a chair and disoriented and he was called ambulance. Patient was hemodynamically stable I received some fluids while in the ambulance. Notably patient just had left knee surgery 3 days ago. She states she has been taking oxycodone at home as well as Xanax which she has pain taking for insomnia for past 3 months. She also takes gabapentin and Seroquel is on her list but I do not know if she has started taking this. It seems patient on my encounter has improved since initial presentation. In the ER, CT a of the chest revealed pulmonary embolism. Past Medical History Cardiac Medical History: Reports: Atrial Fibrillation Denies: Congestive Heart Failure, Coronary Artery Disease, Myocardial Infarction, Hyperlipidema, Hypertension, Peripheral Vascular Disease, Pulmonary Embolism, Heart Murmur Pulmonary Medical History: Reports: Pneumonia Denies: Asthma, Bronchitis, Chronic Obstructive Pulmonary Disease (COPD), Respiratory Failure, Sleep Apnea, Tuberculosis Neurological Medical History: Reports: Migraine Denies: Seizures Endocrine Medical History: Reports: Hypothyroidism Denies: Hyperthyroidism Renal/ Medical History: Denies: End Stage Renal Disease Malignancy Medical History: Denies: Breast Cancer, Cervical Cancer, Leukemia, Lung Cancer, Ovarian Cancer GI Medical History: Denies: Crohn's Disease, Gastroesophageal Reflux Disease, Hiatal Hernia Musculoskeltal Medical History: Reports: Arthritis - THROUGHOUT Denies: Fibromyalgia Psychiatric Medical History: Reports: Bipolar Disorder, Depression, Post Traumatic Stress Disorder - after loss of father 1992 Denies: Dementia - problem with short term memory Hematology: Reports: Anemia Denies: Hemophilia, Sickle Cell Disease Infectious Medical History: Denies: HIV Past Surgical History Past Surgical History: Reports: Cholecystectomy, Gastric Bypass Surgery - 2001, Hysterectomy, Orthopedic Surgery - R knee surgery, L knee, R shoulder, L shoulder, R hip, Tonsillectomy - adenoids, Tubal Ligation Denies: Amputation, Appendectomy, Section, Colostomy, Coronary Artery Bypass Graft, Herniorrhaphy, Mastectomy, Pacemaker Social History Lives with: Alone Smoking Status: Current Every Day Smoker Hx Recreational Drug Use: No Hx Prescription Drug Abuse: No - Advance Directive Resuscitation Status: Full Code Family History Family History: Other - CHF Parental Family History Reviewed: Yes Children Family History Reviewed: Yes Sibling(s) Family History Reviewed.: NA Medication/Allergy Home Medications: Oxycodone HCl [Oxy-Ir 5 mg Tablet] 5 mg PO Q12 03/15/16 Levothyroxine Sodium [Synthroid 0.088 mg Tablet] 88 mcg PO Q6AM 07/04/16 Quetiapine Fumarate [Seroquel] 400 mg PO QHS 07/04/16 Omeprazole 40 mg PO DAILY 04/22/18 Aspirin [Aspirin 325 mg Tablet] 325 mg PO DAILY tablet 05/14/20 Celecoxib [Celebrex 200 mg Capsule] 200 mg PO DAILY capsule 05/14/20 Docusate Sodium [Colace 100 mg Capsule] 100 mg PO TIDP PRN capsule 05/14/20 Eletriptan Hydrobromide [Eletriptan HBr] 40 mg PO DAILYP PRN 05/14/20 Gabapentin [Neurontin 100 mg Capsule] 100 mg PO Q12 capsule 05/14/20 Oxycodone HCl [Oxy-Ir 5 mg Tablet] 5 mg PO NOW PRN tablet 05/14/20 Tramadol HCl [Ultram 50 mg Tablet] 50 mg PO Q4HP PRN tablet 05/14/20 Alprazolam [Xanax 0.5 mg Tablet] 0.5 mg PO Q8HP PRN 05/15/20 Duloxetine HCl [Cymbalta 30 mg Capsule.dr] 90 mg PO DAILY 05/15/20 Gabapentin [Neurontin] 800 mg PO Q8 05/15/20 Suvorexant [Belsomra] 10 mg PO QHS 05/15/20 Allergies/Adverse Reactions: hydrocodone [From [place]] Allergy (Mild, Verified 05/14/20 05:46) lithium [[place]] Allergy (Mild, Verified 05/14/20 05:46) Hives nifedipine [From Procardia] Allergy (Mild, Verified 05/14/20 05:46) Hives paroxetine HCl [From Paxil] Allergy (Mild, Verified 05/14/20 05:46) Hives Penicillins Allergy (Mild, Verified 05/14/20 05:46) Hives Sulfa (Sulfonamide Antibiotics) Allergy (Mild, Verified 05/14/20 05:46) Hives acetaminophen [From Cocet] Adverse Reaction (Intermediate, Verified 05/14/20 05:46) VOMITING codeine [Codeine] Adverse Reaction (Mild, Verified 05/14/20 05:46) Vomiting paroxetine [From Paxil] Adverse Reaction (Verified 05/14/20 05:46) Involuntary movement(arm), Confusion pentazocine [From [place]] Adverse Reaction (Verified 05/14/20 05:46) Nausea/Vomiting paper tape Allergy (Uncoded 05/14/20 05:46) Review of Systems Constitutional: ABSENT: chills, fever(s) Eyes: ABSENT: visual disturbances Ears: ABSENT: hearing changes Nose, Mouth, and Throat: ABSENT: headache(s) Cardiovascular: ABSENT: chest pain Respiratory: PRESENT: dyspnea. ABSENT: cough Gastrointestinal: PRESENT: diarrhea - For the past few months before resolved a week ago, nausea. ABSENT: abdominal pain, vomiting Integumentary: ABSENT: diaphoresis Neurological: PRESENT: confusion, weakness. ABSENT: dizziness, focal weakness Endocrine: ABSENT: polyuria Allergic/Immunologic: PRESENT: other - Denies rhinorrhea or nasal congestion Physical Exam Vital Signs: Temp Pulse Resp BP Pulse Ox 98.6 F 21 H 121/50 L 96 05/17/20 14:37 05/17/20 15:01 05/17/20 15:01 05/17/20 15:01 Intake & Output 05/16/20 05/17/20 05/18/20 06:59 06:59 06:59 Weight 112 kg General appearance: PRESENT: no acute distress, cooperative Eye exam: PRESENT: EOMI Neck exam: ABSENT: JVD Respiratory exam: PRESENT: clear to auscultation [place], symmetrical, unlabored. ABSENT: tachypnea, wheezes Cardiovascular exam: PRESENT: RRR, +S1, +S2. ABSENT: tachycardia GI/Abdominal exam: PRESENT: soft. ABSENT: rebound, rigid, tenderness Neurological exam: PRESENT: alert, awake, oriented to person, oriented to place, oriented to time, oriented to situation, CN II-XII grossly intact - However her speech is only very mildly slurred. ABSENT: ataxia, motor sensory deficit Psychiatric exam: ABSENT: agitated, anxious Focused psych exam: ABSENT: pressured speech Results Laboratory Results: 05/17/20 14:45 05/17/20 14:45 05/17/20 05/17/20 05/17/20 14:45 14:45 14:45 WBC 8.0 RBC 3.57 L Hgb 11.1 L Hct 32.6 L MCV 91 MCH 31.1 MCHC 34.0 RDW 13.6 Plt Count 201 Seg Neutrophils % 81.1 H VBG pH 7.40 VBG pCO2 36.8 VBG HCO3 22.3 VBG Base Excess -2.1 Sodium 138.6 Potassium 4.2 Chloride 107 Carbon Dioxide 21 L Anion Gap 11 BUN 19 Creatinine 1.48 H Est GFR ( Amer) 43 L Glucose 112 H Lactic Acid Calcium 8.9 Magnesium 2.2 Total Bilirubin 1.0 AST 32 Alkaline Phosphatase 117 Total Protein 6.7 Albumin 3.8 TSH 05/17/20 05/17/20 14:45 15:46 WBC RBC Hgb Hct MCV MCH MCHC RDW Plt Count Seg Neutrophils % VBG pH VBG pCO2 VBG HCO3 VBG Base Excess Sodium Potassium Chloride Carbon Dioxide Anion Gap BUN Creatinine Est GFR ( Amer) Glucose Lactic Acid 1.9 Calcium Magnesium Total Bilirubin AST Alkaline Phosphatase Total Protein Albumin TSH 0.51 05/17/20 15:46 Troponin I < 0.012 Impressions: Venous Doppler Study 05/17/20 15:49 IMPRESSION: NO EVIDENCE DVT OR SVT IN THE LEFT LEG. Chest/Abdomen CTA 05/17/20 15:51 IMPRESSION: 1. There appears to be a very limited pulmonary embolus in the lingular pulmonary artery. 2. There is no aortic aneurysm or dissection. 3. There are very limited, very faintly defined peripheral ground-glass infiltrates. May represent an atypical infectious/ inflammatory process. 4. Lower lobe atelectatic changes are present. Chest X-Ray 05/17/20 16:49 IMPRESSION: Increasing perihilar atelectasis. Assessment and Plan - Diagnosis (1) Acute metabolic encephalopathy Is this a current diagnosis for this admission?: Yes Plan: Suspect that this is secondary to polypharmacy. Have held all sedating medications. We will try melatonin for insomnia. Deficits are no focal she seems to already be very much improved and almost back to baseline Admit for observation (2) Pulmonary embolism Qualifiers: Pulmonary embolism type: unspecified Chronicity: acute Acute cor pulmonale presence: without acute cor pulmonale Qualified Code(s): I26.99 - Other pulmonary embolism without acute cor pulmonale Is this a current diagnosis for this admission?: Yes Plan: CT scan imaging results reviewed Received a shot of Lovenox today. I will start her on Eliquis from tomorrow Adequate saturation in the high 90s on room air during my encounter. (3) Elevated serum creatinine Is this a current diagnosis for this admission?: Yes Plan: Appears to be chronic kidney disease. Creatinine currently close to baseline. We will see if any response to fluid administration through the night. Check metabolic panel in the morning. (4) Status post total left knee replacement Is this a current diagnosis for this admission?: Yes Plan: Try pain control with Tylenol and Motrin. Hold off on gabapentin for now. Physical therapy Will follow up with Dr. Shore as outpatient. (5) Atelectasis Is this a current diagnosis for this admission?: Yes Plan: Secondary to limited mobilization. Incentive spirometer and encourage ambulation. - Time Time Spent with patient: 35 or more minutes Anticipated Discharge Disposition: Home with Home Health Anticipated Discharge Timeframe: within 36 hours
[2020-05-17 19:34] LABS: APPEARANCE,URINE CLEAR; BILIRUBIN,URINE NEGATIVE (NEGATIVE); COLOR,URINE YELLOW; GLUCOSE, URINE NEGATIVE (NEGATIVE); KETONES,URINE NEGATIVE (NEGATIVE); LEUKOCYTE ESTERASE,URINE NEGATIVE (NEGATIVE); NITRITE,URINE NEGATIVE (NEGATIVE); PROTEIN,URINE NEGATIVE (NEGATIVE); URINE SPECIFIC GRAVITY 1.013; UROBILINOGEN,URINE NEGATIVE mg/dL (<2.0)
[2020-05-17 19:58] LABS: URINE AMPHETAMINES SCREEN NEGATIVE; URINE BARBITURATES SCREEN NEGATIVE; URINE COCAINE SCREEN NEGATIVE; URINE MARIJUANA (THC) SCREEN NEGATIVE; URINE METHADONE SCREEN NEGATIVE; URINE PHENCYCLIDINE SCREEN NEGATIVE
[2020-05-17 20:03] LABS: URINE BENZODIAZEPINES SCREEN UNCONFIRMED POSITIVE
[2020-05-17] MEDS ORDERED: MELATONIN 5 MG TABLET PO SCH (22:00)
[2020-05-18 06:22] LABS: ANION GAP 6 (5-19); BLOOD UREA NITROGEN 15 mg/dL (7-20); CALCIUM 8.3 mg/dL (8.4-10.2); CARBON DIOXIDE 21 mmol/L (22-30); CHLORIDE 113 mmol/L (98-107); GLUCOSE 97 mg/dL (75-110); POTASSIUM 3.9 mmol/L (3.6-5.0)
[2020-05-18] MEDS ORDERED: TRAMADOL HCL 50 MG TABLET PO PRN (08:26)
[2020-05-18 09:12] VITALS: BP 148/47
[2020-05-18] MEDS ORDERED: APIXABAN 5 MG TABLET PO SCH (10:00)
[2020-05-18] MEDS ORDERED: DULOXETINE HCL 30 MG CAPSULE.DR PO SCH (10:00)
--- NOTE | 2020-05-18 11:46 | PDOC DISCHARGE SUMMARY ---
Impression - Admit/DC Date/PCP Admission Date/Primary Care Provider: 05/17/20 18:37 CHERELLE PATEL MD Discharge Date: 05/18/20 - Discharge Diagnosis (1) Acute metabolic encephalopathy Is this a current diagnosis for this admission?: Yes (2) Polypharmacy Is this a current diagnosis for this admission?: Yes (3) Pulmonary embolism Is this a current diagnosis for this admission?: Yes (4) Status post total left knee replacement Is this a current diagnosis for this admission?: Yes (5) Stage 3a chronic kidney disease Is this a current diagnosis for this admission?: Yes (6) Atelectasis Is this a current diagnosis for this admission?: Yes - Additional Information Resuscitation Status: Full Code Discharge Diet: As Tolerated Discharge Activity: Activity As Tolerated Referrals: CHERELLE PATEL MD [Primary Care Provider] - Follow up as needed ROSY WORKMAN JR, DO [ACTIVE PROVISIONAL STAFF] - Prescriptions: Apixaban [Eliquis 5 mg Tablet] 5 mg PO BID #80 tablet Home Medications: Levothyroxine Sodium [Synthroid 0.088 mg Tablet] 88 mcg PO Q6AM 07/04/16 Omeprazole 40 mg PO DAILY 04/22/18 Eletriptan Hydrobromide [Eletriptan HBr] 40 mg PO DAILYP PRN 05/14/20 Alprazolam [Xanax 0.5 mg Tablet] 0.5 mg PO Q8HP PRN 05/15/20 Duloxetine HCl [Cymbalta 30 mg Capsule.dr] 90 mg PO DAILY 05/15/20 Suvorexant [Belsomra] 10 mg PO HSP PRN 05/15/20 Docusate Sodium [Colace 100 mg Capsule] 100 mg PO TIDP PRN 05/17/20 Travoprost 1 drop OD DAILY 05/17/20 Acetaminophen [Tylenol 325 mg Tablet] 975 mg PO Q4HP PRN tablet 05/18/20 Apixaban [Eliquis 5 mg Tablet] 5 mg PO BID #80 tablet 05/18/20 Gabapentin [Neurontin] 800 mg PO Q12 #0 05/18/20 Ibuprofen [Motrin 400 mg Tablet] 400 mg PO Q6HP PRN tablet 05/18/20 Tramadol HCl [Ultram 50 mg Tablet] 50 mg PO BIDP PRN #0 05/18/20 History of Present Illiness History of Present Illness: TILA BOONE is a 65 year old female with history of recent left knee surgery 3 days ago, who presents to the hospital via EMS for evaluation of altered mental status. Patient was noted to be groggy at home with difficulty getting up from a chair and disoriented and he was called ambulance. Patient was hemodynamically stable I received some fluids while in the ambulance. Notably patient just had left knee surgery 3 days ago. She states she has been taking oxycodone at home as well as Xanax which she has pain taking for insomnia for past 3 months. She also takes gabapentin and Seroquel is on her list but I do not know if she has started taking this. It seems patient on my encounter has improved since initial presentation. In the ER, CT a of the chest revealed pulmonary embolism. Hospital Course Hospital Course: Patient was admitted to the hospital for evaluation of acute metabolic encephalopathy thought to be toxic metabolic from polypharmacy given that she is on multiple sedative medications including Xanax which she takes a total dose of 3 mg daily as well as Seroquel, gabapentin, and tramadol. Her vital signs were stable. She was noted to be briefly hypoxic in the ER but that resolved by the time of admission. CTA of the chest was obtained which revealed pulmonary embolism without evidence of right heart strain. Patient was initiated on therapeutic Lovenox and then started on Eliquis today. She has received her first dose of Eliquis. She will be discharged with Eliquis 10 mg twice daily for 7 days then 5 mg twice daily henceforth. She will require about 3 to 6 months of anticoagulation as her PE is thought to be provoked by limited mobility and recent surgery. She will be following up with her primary care provider for refills. Today patient is back to her normal mental status and she has ambulated very well over 300 feet with physical therapy. [facility] and her home health will be resumed. Patient has been instructed on a weaning protocol for her Xanax starting at total daily dose of 1.5 mg for 1 week then 1 mg for another week then 0.5 mg then stop. Her Seroquel has been discontinued and her gabapentin has been reduced to twice daily dosing. She will also be discharged with incentive spirometer to help with her atelectasis Physical Exam Vital Signs: Temp Pulse Resp BP Pulse Ox 97.9 F 87 16 148/47 H 92 05/18/20 08:06 05/18/20 08:00 05/18/20 08:00 05/18/20 08:00 05/18/20 08:00 Intake & Output 05/17/20 05/18/20 05/19/20 06:59 06:59 06:59 Intake Total 350 Output Total 900 Balance -550 Weight 114.6 kg General appearance: PRESENT: no acute distress, cooperative Respiratory exam: PRESENT: unlabored. ABSENT: accessory muscle use Musculoskeletal exam: PRESENT: ambulatory Neurological exam: PRESENT: alert, awake, oriented to person, oriented to place, oriented to time, oriented to situation Results Laboratory Results: WBC 8.0 10^3/uL (4.0-10.5) 05/17/20 14:45 RBC 3.57 10^6/uL (3.72-5.28) L 05/17/20 14:45 Hgb 11.1 g/dL (12.0-15.5) L 05/17/20 14:45 Hct 32.6 % (36.0-47.0) L 05/17/20 14:45 MCV 91 fl (80-97) 05/17/20 14:45 MCH 31.1 pg (27.0-33.4) 05/17/20 14:45 MCHC 34.0 g/dL (32.0-36.0) 05/17/20 14:45 RDW 13.6 % (11.5-14.0) 05/17/20 14:45 Plt Count 201 10^3/uL (150-450) 05/17/20 14:45 Lymph % (Auto) 9.5 % (13-45) L 05/17/20 14:45 [place] % (Auto) 8.5 % (3-13) 05/17/20 14:45 Eos % (Auto) 0.6 % (0-6) 05/17/20 14:45 Baso % (Auto) 0.3 % (0-2) 05/17/20 14:45 Absolute Neuts (auto) 6.5 10^3/uL (1.7-8.2) 05/17/20 14:45 Absolute Lymphs (auto) 0.8 10^3/uL (0.5-4.7) 05/17/20 14:45 Absolute Monos (auto) 0.7 10^3/uL (0.1-1.4) 05/17/20 14:45 Absolute Eos (auto) 0.0 10^3/uL (0.0-0.6) 05/17/20 14:45 Absolute Basos (auto) 0.0 10^3/uL (0.0-0.2) 05/17/20 14:45 Seg Neutrophils % 81.1 % (42-78) H 05/17/20 14:45 PT 14.2 SEC (11.4-15.4) 05/17/20 14:45 INR 1.08 05/17/20 14:45 VBG pH 7.40 (7.30-7.42) 05/17/20 14:45 VBG pCO2 36.8 mmHg (35-63) 05/17/20 14:45 VBG HCO3 22.3 mmol/L (20-32) 05/17/20 14:45 VBG Base Excess -2.1 mmol/L 05/17/20 14:45 Sodium 140.4 mmol/L (137-145) 05/18/20 05:39 Potassium 3.9 mmol/L (3.6-5.0) 05/18/20 05:39 Chloride 113 mmol/L (98-107) H 05/18/20 05:39 Carbon Dioxide 21 mmol/L (22-30) L 05/18/20 05:39 Anion Gap 6 (5-19) 05/18/20 05:39 BUN 15 mg/dL (7-20) 05/18/20 05:39 Creatinine 1.31 mg/dL (0.52-1.25) H 05/18/20 05:39 Est GFR ( Amer) 49 (>60) L 05/18/20 05:39 Est GFR (MDRD) Non-Af 41 (>60) L 05/18/20 05:39 Glucose 97 mg/dL (75-110) 05/18/20 05:39 POC Glucose 105 mg/dL (70-110) 05/17/20 15:05 Lactic Acid 1.9 mmol/L (0.7-2.1) 05/17/20 14:45 Calcium 8.3 mg/dL (8.4-10.2) L 05/18/20 05:39 Magnesium 2.2 mg/dL (1.6-2.3) 05/17/20 14:45 Total Bilirubin 1.0 mg/dL (0.2-1.3) 05/17/20 14:45 Direct Bilirubin 0.4 mg/dL (0.0-0.4) 05/17/20 14:45 Neonat Total Bilirubin Not Reportable 05/17/20 14:45 Neonat Direct Bilirubin Not Reportable 05/17/20 14:45 Neonat Indirect Bili Not Reportable 05/17/20 14:45 AST 32 U/L (14-36) 05/17/20 14:45 ALT 13 U/L (<35) 05/17/20 14:45 Alkaline Phosphatase 117 U/L (38-126) 05/17/20 14:45 Troponin I < 0.012 ng/mL 05/17/20 15:46 Total Protein 6.7 g/dL (6.3-8.2) 05/17/20 14:45 Albumin 3.8 g/dL (3.5-5.0) 05/17/20 14:45 TSH 0.51 uIU/mL (0.47-4.68) 05/17/20 15:46 Urine Color YELLOW 05/17/20 18: Urine Appearance CLEAR 05/17/20 18:26 Urine pH 5.0 (5.0-9.0) 05/17/20 18:26 Ur Specific [place] 1.013 05/17/20 18:26 Urine Protein NEGATIVE mg/dL (NEGATIVE) 05/17/20 18: Urine Glucose (UA) NEGATIVE mg/dL (NEGATIVE) 05/17/20 18:26 Urine Ketones NEGATIVE mg/dL (NEGATIVE) 05/17/20 18:26 Urine Blood NEGATIVE (NEGATIVE) 05/17/20 18: Urine Nitrite NEGATIVE (NEGATIVE) 05/17/20 18: Urine Bilirubin NEGATIVE (NEGATIVE) 05/17/20 18:26 Urine Urobilinogen NEGATIVE mg/dL (<2.0) 05/17/20 18:26 Ur Leukocyte Esterase NEGATIVE (NEGATIVE) 05/17/20 18:26 Urine WBC (Auto) 1 /HPF 05/17/20 18:26 Urine RBC (Auto) 1 /HPF 05/17/20 18:26 Squamous Epi Cells Auto <1 /HPF 05/17/20 18:26 Urine Mucus (Auto) RARE /LPF 05/17/20 18:26 Urine Ascorbic Acid NEGATIVE (NEGATIVE) 05/17/20 18:26 Urine Opiates Screen UNCONFIRMED POSITIVE 05/17/20 18:26 Urine Methadone Screen NEGATIVE 05/17/20 18:26 Ur Barbiturates Screen NEGATIVE 05/17/20 18:26 Ur Phencyclidine Scrn NEGATIVE 05/17/20 18:26 Ur Amphetamines Screen NEGATIVE 05/17/20 18:26 U Benzodiazepines Scrn UNCONFIRMED POSITIVE 05/17/20 18:26 Urine Cocaine Screen NEGATIVE 05/17/20 18:26 U Marijuana (THC) Screen NEGATIVE 05/17/20 18:26 Serum Alcohol < 10 mg/dL (NONE DETECTED) 05/17/20 14:45 05/17/20 15:46 Troponin I < 0.012 Impressions: Venous Doppler Study 05/17/20 15:49 IMPRESSION: NO EVIDENCE DVT OR SVT IN THE LEFT LEG. Chest/Abdomen CTA 05/17/20 15:51 IMPRESSION: 1. There appears to be a very limited pulmonary embolus in the lingular pulmonary artery. 2. There is no aortic aneurysm or dissection. 3. There are very limited, very faintly defined peripheral ground-glass infiltrates. May represent an atypical infectious/ inflammatory process. 4. Lower lobe atelectatic changes are present. Chest X-Ray 05/17/20 16:49 IMPRESSION: Increasing perihilar atelectasis. Plan Time Spent: Less than 30 Minutes Stroke Is this a Stroke Patient?: No Acute Heart Failure Is this a Heart Failure Patient?: No
[2020-05-19] MEDS ORDERED: LEVOTHYROXINE SODIUM 0.088 MG TABLET PO SCH (06:00)
== END 2020-05-18 13:45 | disposition home health service (06) ==
LOC: ER 14:28 → INTOOBSV 18:37 → EH 18:37 → 4N 21:35
PROVIDERS: ADMIT Internal Medicine; ATTEND Internal Medicine
DX: G93.41 Metabolic encephalopathy (principal); I26.99 Other pulmonary embolism without acute cor pulmonale; N18.31 Chronic kidney disease, stage 3a; J98.11 Atelectasis; Z79.899 Other long term (current) drug therapy; Z96.652 Presence of left artificial knee joint; G47.00 Insomnia, unspecified; R09.02 Hypoxemia; E03.9 Hypothyroidism, unspecified; F17.210 Nicotine dependence, cigarettes, uncomplicated; N17.9 Acute kidney failure, unspecified; M13.80 Other specified arthritis, unspecified site; F31.9 Bipolar disorder, unspecified; R60.0 Localized edema; Z98.84 Bariatric surgery status; Z90.49 Acquired absence of other specified parts of digestive tract; Z60.2 Problems related to living alone; Z79.890 Hormone replacement therapy; Z87.01 Personal history of pneumonia (recurrent); Z79.891 Long term (current) use of opiate analgesic; Z98.890 Other specified postprocedural states; Z82.49 Family history of ischemic heart disease and other diseases of the circulatory system
CPT/HCPCS: 93005; 99285; 36415 ×2; 87040; 82962; 80307 ×2; 83605; 83735; 84443; 85025; 85610; 80048; 80053; 81001; 84484; 82803; 93971; 71045; 71275; 93010; 97116; 97162; G0378 ×3; A9270 ×5; J1650; J7030; J3490

== ENCOUNTER 2020-07-24 15:37 | Emergency (ER) | payer MEDICARE, MEDICAID ==
[2020-07-24 16:40] VITALS: BP 145/68
--- NOTE | 2020-07-24 17:04 | ER Document Report ---
ED Medical Screen (RME) - General Chief Complaint: Leg Swelling Stated Complaint: LEFT LEG PAIN/SWELLING Time Seen by Provider: 07/24/20 16:51 Primary Care Provider: CHERELLE PATEL MD [Primary Care Provider] - Follow up as needed TRAVEL OUTSIDE OF THE [place] IN LAST 30 DAYS: No - HPI Notes: 07/24/20 17:02 65-year-old female with a history of multiple pulmonary embolisms in the fall 2020 status post left knee replacement presents to the emergency room today with complaints of left knee pain and swelling that has become progressively worse over the last couple of days. Patient also reports she is having shortness of breath that started 2 days ago. Patient was on Xarelto for her PEs however was taken off 3 weeks ago by her primary care provider. Denies any falls or traum as. Denies any chest pain, nausea, vomiting, diarrhea. I have greeted and performed a rapid initial assessment of this patient. A comprehensive ED assessment and evaluation of the patient, analysis of test results and completion of the medical decision making process will be conducted by additional ED providers. PHYSICAL EXAMINATION: GENERAL: Well-appearing, well-nourished and in no acute distress. CV: s1, s2 regular LUNGS: No respiratory distress Musculoskeletal: Normal range of motion. Tenderness to left anterior knee on palpation. Distal pulses +2 bilaterally equally NEUROLOGICAL: Normal speech, normal gait. SKIN: Warm, Dry, normal turgor, no rashes or lesions noted. The patient was evaluated during a global COVID-19 pandemic and that diagnosis was suspected/considered upon their initial presentation. Their evaluation, treatment and testing was consistent with current guidelines for patients who present with complaints or symptoms and may be related to COVID-19. - Related Data Allergies/Adverse Reactions: lithium [[place]] Allergy (Mild, Verified 07/24/20 16:54) Hives nifedipine [From Procardia] Allergy (Mild, Verified 07/24/20 16:54) Hives paroxetine HCl [From Paxil] Allergy (Mild, Verified 07/24/20 16:54) Hives Penicillins Allergy (Mild, Verified 07/24/20 16:54) Hives Sulfa (Sulfonamide Antibiotics) Allergy (Mild, Verified 07/24/20 16:54) Hives acetaminophen [From Cocet] Adverse Reaction (Intermediate, Verified 07/24/20 16:54) VOMITING pentazocine [From [place]] Adverse Reaction (Verified 07/24/20 16:54) Nausea/Vomiting paper tape Allergy (Uncoded 07/24/20 16:54) Home Medications: oxycodone, quetiapine, eletriptan, levothyroxine, [place], duloxetine, alfuzosin, gabapentin, omeprazol Past Medical History - Social History Frequency of alcohol use: None Drug Abuse: None - Past Medical History Cardiac Medical History: Reports: Hx Atrial Fibrillation Denies: Hx Congestive Heart Failure, Hx Coronary Artery Disease, Hx Heart Attack, Hx Hypercholesterolemia, Hx Hypertension, Hx Peripheral Vascular Disease, Hx Pulmonary Embolism, Hx Heart Murmur Pulmonary Medical History: Reports: Hx Pneumonia Denies: Hx Asthma, Hx Bronchitis, Hx COPD, Hx Respiratory Failure, Hx Sleep Apnea, Hx Tuberculosis Neurological Medical History: Reports: Hx Migraine. Denies: Hx Cerebrovascular Accident, Hx Seizures, Hx Parkinson's Disease Endocrine Medical History: Reports: Hx Hypothyroidism. Denies: Hx Graves' Disease, Hx Hyperthyroidism Renal/ Medical History: Reports: Hx Ovarian Cysts - often, break upon standing. Denies: Hx End Stage Renal Disease, Hx Kidney Stones, Hx Peritoneal Dialysis, Hx Pelvic Inflammatory Disease Malignancy Medical History: Denies: Hx Breast Cancer, Hx Cervical Cancer, Hx Leukemia, Hx Lung Cancer, Hx Ovarian Cancer GI Medical History: Reports: Hx Irritable Bowel. Denies: Hx Crohn's Disease, Hx Gastroesophageal Reflux Disease, Hx Hiatal Hernia, Hx Liver Failure, Hx Pancreatitis, Hx Ulcer Musculoskeltal Medical History: Reports Hx Arthritis - THROUGHOUT, Denies Hx Fibromyalgia, Denies Hx Multiple Sclerosis, Denies Hx Muscular Dystrophy, Denies Hx Systemic Lupus Erythematosus Psychiatric Medical History: Reports: Hx Bipolar Disorder, Hx Depression, Hx Post Traumatic Stress Disorder - after loss of father 1992 Denies: Hx Dementia - problem with short term memory, Hx Schizophrenia Traumatic Medical History: Denies: Hx Fractures Infectious Medical History: Denies: Hx HIV Past Surgical History: Reports: Hx Abdominal Surgery, Hx Cholecystectomy, Hx Gastric Bypass Surgery - 2001, Hx Hysterectomy, Hx Orthopedic Surgery - R knee surgery, L knee, R shoulder, L shoulder, R hip, Hx Tonsillectomy - adenoids, Hx Tubal Ligation. Denies: Hx Appendectomy, Hx Bowel Surgery, Hx Section, Hx Colostomy, Hx Coronary Artery Bypass Graft, Hx Herniorrhaphy, Hx Mastectomy, Hx Pacemaker - Immunizations Hx Diphtheria, Pertussis, Tetanus Vaccination: No Physical Exam - Vital signs Vitals: Temp Pulse Resp BP Pulse Ox 98.1 F 80 16 145/68 H 94 07/24/20 16:37 07/24/20 16:37 07/24/20 16:37 07/24/20 16:37 07/24/20 16:37 Course - Vital Signs Vital signs: Temp Pulse Resp BP Pulse Ox 98.1 F 80 16 145/68 H 94 07/24/20 16:37 07/24/20 16:37 07/24/20 16:37 07/24/20 16:37 07/24/20 16:37 Doctor's Discharge - Discharge Referrals: CHERELLE PATEL MD [Primary Care Provider] - Follow up as needed
[2020-07-24 17:53] LABS: ABSOLUTE EOSINOPHILS # (AUTO) 0.2 10^3/uL (0.0-0.6); ABSOLUTE LYMPHOCYTES (AUTO) 2.1 10^3/uL (0.5-4.7); ABSOLUTE MONOCYTES (AUTO) 0.5 10^3/uL (0.1-1.4); ABSOLUTE NEUT (AUTO) 5.4 10^3/uL (1.7-8.2); BASOPHILS % (AUTO) 0.5 % (0-2); EOSINOPHILS % (AUTO) 2.2 % (0-6); HEMATOCRIT 36.5 % (36.0-47.0); HEMOGLOBIN 12.3 g/dL (12.0-15.5); LYMPHOCYTES % (AUTO) 25.7 % (13-45); MEAN CORPUSCULAR HEMOGLOBIN 30.9 pg (27.0-33.4); MEAN CORPUSCULAR HGB CONC 33.8 g/dL (32.0-36.0); MEAN CORPUSCULAR VOLUME 92 fl (80-97); MONOCYTES % (AUTO) 5.7 % (3-13); PLATELET COUNT 234 10^3/uL (150-450); RED BLOOD COUNT 3.99 10^6/uL (3.72-5.28); RED CELL DISTRIBUTION WIDTH 15.7 % (11.5-14.0); SEGMENTED NEUTROPHILS % (AUTO) 65.9 % (42-78); TOTAL CELLS COUNTED % (AUTO) 100 %; WHITE BLOOD COUNT 8.2 10^3/uL (4.0-10.5)
[2020-07-24 18:01] LABS: INTERNATIONAL RATION (INR) 0.95; PROTHROMBIN TIME 12.9 SEC (11.4-15.4)
[2020-07-24 18:02] LABS: PARTIAL THROMBOPLASTIN TIME 29.4 SEC (23.5-35.8)
[2020-07-24 18:15] LABS: ALBUMIN 4.1 g/dL (3.5-5.0); ALKALINE PHOSPHATASE 121 U/L (38-126); ANION GAP 6 (5-19); ASPARTATE AMINO TRANSFERASE 30 U/L (14-36); BILIRUBIN,DIRECT 0.2 mg/dL (0.0-0.4); BILIRUBIN,TOTAL 0.3 mg/dL (0.2-1.3); BLOOD UREA NITROGEN 17 mg/dL (7-20); CALCIUM 8.9 mg/dL (8.4-10.2); CARBON DIOXIDE 28 mmol/L (22-30); CHLORIDE 107 mmol/L (98-107); GLUCOSE 98 mg/dL (75-110); POTASSIUM 4.9 mmol/L (3.6-5.0); TOTAL PROTEIN 7.1 g/dL (6.3-8.2)
--- NOTE | 2020-07-24 19:44 | RADIOLOGY REPORT (SQ) ---
EXAM DESCRIPTION: VENOUS UNILATERAL LOWER IMAGES COMPLETED DATE/TIME: 07/24/2020 7:33 pm REASON FOR STUDY: pain left leg / Hx clots/PEs COMPARISON: 05/17/2020 TECHNIQUE: Dynamic and static valencia scale and color images acquired of the left leg venous system. Se lected spectral images acquired with additional compression and augmentation maneuvers. The contralat eral common femoral vein and saphenofemoral junction were also imaged. Images stored on PACS. LIMITATIONS: None. FINDINGS: COMMON FEMORAL: Normal phasicity, compression and augmentation. No visualized echogenic ma terial on valencia scale. No defects on color images. FEMORAL: Normal compression and augmentation. No visualized echogenic material on valencia scale. No defe cts on color images. POPLITEAL: Normal compression, augmentation. No visualized echogenic material on valencia scale. No defec ts on color images. CALF VESSELS: Normal compression, augmentation. No visualized echogenic material on valencia scale. No de fects on color images. GSV and SSV: Normal compression, augmentation. No visualized echogenic material on valencia scale. No def ects on color images. ANY DEEP VENOUS INSUFFICIENCY: Not evaluated. ANY EVIDENCE OF POPLITEAL CYST: No. OTHER: No other significant finding. CONTRALATERAL COMMON FEMORAL VEIN AND SAPHENOFEMORAL JUNCTION: Normal phasicity, compression and augmentation. No visualized echogenic material on valencia scale. No de fects on color images. IMPRESSION: NO EVIDENCE OF DVT OR SVT IN THE LEFT LEG. TECHNICAL DOCUMENTATION: JOB ID: [id number] 2010 [employer]- All Rights Reserved Reading location - IP/workstation name: [email or web address]
--- NOTE | 2020-07-24 21:36 | EKG REPORT ---
SEVERITY:- BORDERLINE ECG - SINUS RHYTHM PROBABLE LEFT ATRIAL ABNORMALITY BORDERLINE LEFT AXIS DEVIATION : Confirmed by: Waylon Scott MD 24-Jul-2020 21:36:00
== END 2020-07-25 00:32 | disposition left against medical advice (07) ==
LOC: ER 15:37
DX: M25.562 Pain in left knee (principal); R06.02 Shortness of breath; F31.9 Bipolar disorder, unspecified; G43.909 Migraine, unspecified, not intractable, without status migrainosus; E03.9 Hypothyroidism, unspecified; Z79.899 Other long term (current) drug therapy; Z79.891 Long term (current) use of opiate analgesic; Z96.652 Presence of left artificial knee joint; Z86.711 Personal history of pulmonary embolism; Z98.84 Bariatric surgery status; Z88.8 Allergy status to other drugs, medicaments and biological substances; Z88.0 Allergy status to penicillin; Z88.2 Allergy status to sulfonamides; Z91.048 Other nonmedicinal substance allergy status; Z20.828 Contact with and (suspected) exposure to other viral communicable diseases; Z53.20 Procedure and treatment not carried out because of patient's decision for unspecified reasons
CPT/HCPCS: 36415; 80053; 84484; 85025; 85610; 85730; 93005; 93010; 93971; 99281

== ENCOUNTER → 2020-08-20 | Outpatient (CLI) | payer MEDICARE, MEDICAID ==
[2020-08-20 11:18] LABS: ABSOLUTE EOSINOPHILS # (AUTO) 0.2 10^3/uL (0.0-0.6); ABSOLUTE LYMPHOCYTES (AUTO) 1.9 10^3/uL (0.5-4.7); ABSOLUTE MONOCYTES (AUTO) 0.4 10^3/uL (0.1-1.4); ABSOLUTE NEUT (AUTO) 5.5 10^3/uL (1.7-8.2); BASOPHILS % (AUTO) 0.5 % (0-2); HEMATOCRIT 40.3 % (36.0-47.0); HEMOGLOBIN 13.3 g/dL (12.0-15.5); LYMPHOCYTES % (AUTO) 23.5 % (13-45); MEAN CORPUSCULAR HEMOGLOBIN 30.6 pg (27.0-33.4); MEAN CORPUSCULAR VOLUME 93 fl (80-97); MONOCYTES % (AUTO) 5.2 % (3-13); PLATELET COUNT 238 10^3/uL (150-450); RED BLOOD COUNT 4.34 10^6/uL (3.72-5.28); RED CELL DISTRIBUTION WIDTH 15.8 % (11.5-14.0); SEGMENTED NEUTROPHILS % (AUTO) 68.8 % (42-78); TOTAL CELLS COUNTED % (AUTO) 100 %
[2020-08-20 11:33] LABS: ALBUMIN 4.2 g/dL (3.5-5.0); ALKALINE PHOSPHATASE 108 U/L (38-126); ANION GAP 7 (5-19); ASPARTATE AMINO TRANSFERASE 32 U/L (14-36); BILIRUBIN,DIRECT 0.3 mg/dL (0.0-0.4); BILIRUBIN,TOTAL 0.5 mg/dL (0.2-1.3); BLOOD UREA NITROGEN 15 mg/dL (7-20); CALCIUM 9.4 mg/dL (8.4-10.2); CARBON DIOXIDE 24 mmol/L (22-30); CHLORIDE 108 mmol/L (98-107); CHOLESTEROL 182.34 mg/dL (0-200); GLUCOSE 97 mg/dL (75-110); TOTAL PROTEIN 7.3 g/dL (6.3-8.2); TRIGLYCERIDES 134 mg/dL (<150)
[2020-08-20 11:44] LABS: DIRECT LDL 71 mg/dL (<100)
== END ==
LOC: OD 09:57
PROVIDERS: ATTEND Physician Assistant
DX: F33.2 Major depressive disorder, recurrent severe without psychotic features (principal); Z79.899 Other long term (current) drug therapy
CPT/HCPCS: 36415; 80053; 80061; 83036; 85025